=== PATIENT | female | born 2000 | race Caucasian/White ===

== ENCOUNTER 2019-10-05 15:42 | Emergency (ER) | payer OTHER, SELFPAY ==
[2019-10-05 16:15] VITALS: BP 119/58; PULSE 65; RESP 18; TEMP 37.4; O2SAT 100
--- NOTE | 2019-10-05 16:42 | ED.URI ---
HPI - URI/Sore Throat General Chief Complaint: Upper Respiratory Infection Stated Complaint: Sore Throat Time Seen by Provider: 10/05/19 16:32 Source: patient and RN notes reviewed Mode of arrival: ambulatory Limitations: no limitations History of Present Illness HPI Narrative: Patient presents today complaint of a 4-day history of sore throat, fatigue, body aches, chills, runny nose. Today she developed a migraine headache that is similar to previous migraines. She took NyQuil last night, but no other medications for symptoms. She currently rates her pain 5/10. She does not smoke cigarettes or vape. She does smoke marijuana. MD elicited complaint: fever, sore throat, rhinorrhea and nasal congestion Related Data Home Medications Medication Instructions Recorded Confirmed albuterol sulfate 2 puff INHALATION PRN 10/05/19 Allergies Allergy/AdvReac Type Severity Reaction Status Date / Time No Known Allergies Allergy Verified 10/05/19 16:25 Review of Systems Review of Systems: Narrative: CONSTITUTIONAL: Denies body aches, fever, or sweats.+ Fatigue, chills EYES: Denies visual changes, redness, or discharge. ENT: Denies otalgia. + Rhinorrhea, congestion, sore throat CARDIOVASCULAR: Denies chest pain, palpitations, or edema. RESPIRATORY: Denies cough or dyspnea. GASTROINTESTINAL: Denies abdominal pain, nausea, vomiting, or diarrhea. GENITOURINARY: Denies dysuria or hematuria. SKIN: Denies rash, itching, or wounds. MUSCULOSKELETAL: Denies back pain, joint pain, or myalgia. NEUROLOGIC: Denies numbness, tingling, or weakness.+ Migraine PSYCH: Denies depression or anxiety. PMFSH Social History Social History Gender identity (if verbalized by the patient): Female Comments At time of signature, I have reviewed and agree with nursing past medical, surgical, social and family history unless otherwise noted. Please see nursing chart for further information. There is no relevant family history pertinent to the presenting complaint Exam Narrative: Exam Narrative: GENERAL: Well-appearing, well-nourished, and in no acute distress. HEAD: Normocephalic, atraumatic. EYES: EOMI. No redness or drainage. Conjunctivae normal. ENT: Mucous membranes pink and moist. Nares congested. No rhinorrhea. TMs normal bilaterally. Throat mildly erythematous with copious amount of white postnasal drainage. Uvula midline. NECK: Normal AROM. Supple. Left anterior cervical chain lymphadenopathy. CHEST: No respiratory distress. Clear to auscultation. HEART: Regular rate and rhythm. No murmur appreciated. Normal peripheral pulses. EXTREMITIES: Normal range of motion. No edema. SKIN: Warm, dry, no rash. NEURO: No focal deficits. Alert and oriented x3. Gait steady. PSYCH: Normal affect. No signs of depression or anxiety. Course Vital Signs Vital signs: Temp 99.3, pulse 65, RR 18, blood pressure 119/58. Pulse ox 100 on room air. MDM - URI/Sore Throat Differential Diagnosis Differential diagnosis: Likely upper respiratory infection, otitis media, sinusitis, viral infection, bronchitis, pharyngitis and other (Strep throat) Lab Data Attestation: I reviewed the patient's lab results. Labs: Strep Screen Presumptive Negative *(Reference Range: Negative)* Critical Care Time Critical Care Time Critical Care Time: No Discharge Plan Discharge Clinical Impression: Upper respiratory infection Qualifiers: URI type: unspecified URI Qualified Code(s): J06.9 - Acute upper respiratory infection, unspecified Patient Disposition: Home, Self-Care Condition: Stable Instructions: Upper Respiratory Infection (DC) Additional Instructions: Your rapid strep swab was negative today at [facility]. You will be notified in a few days if the culture comes back positive for strep, and appropriate antibiotics will be called in for you at that time. Your symptoms are likely due to a viral illness, which is not treated
== END 2019-10-05 16:59 | disposition home or self-care (01) ==
PROVIDERS: Emergency Provider Nurse Practitioner; PCP Emergency Medicine
DX: J06.9 Acute upper respiratory infection, unspecified (principal); J45.909 Unspecified asthma, uncomplicated
CPT/HCPCS: 87081; 87880; 99213; G0463

== ENCOUNTER 2019-11-13 21:14 | Emergency (ER) | payer OTHER, SELFPAY ==
[2019-11-13 21:33] VITALS: BP 124/84; PULSE 105; RESP 20; TEMP 37.1; O2SAT 100
--- NOTE | 2019-11-13 22:02 | PC.NURSE ---
Patient up to desk stating her only ride is here to get her. Explained to patient that she is always welcome to come back but that if she is having difficulty breathing she would be seen. Patient stated she would stay.
[2019-11-13 22:35] VITALS: BP 121/78; PULSE 97; RESP 18; O2SAT 100
--- NOTE | 2019-11-13 23:29 | ED.SOB ---
HPI - SOB/Dyspnea General Chief Complaint: Shortness of Breath/Dyspnea Stated Complaint: wheezing, asthma Time Seen by Provider: 11/13/19 22:38 Source: patient and RN notes reviewed Mode of arrival: ambulatory Limitations: no limitations History of Present Illness HPI Narrative: Pt is a 19 y/o female presenting to the ED c/o SOB. Pt reports she is intermittently experiencing SOB and chest tightness. Pt states she has a Hx of asthma and notes she ran out of medication in her inhaler. Pt notes she has recently switched PCP's and has been unable to acquire her medication appropriately. Pt denies fever or chills. Pertinent past history: asthma Onset (ago): unknown Timing: intermittent Associated symptoms: chest pain (Tightness) Related Data Home Medications Medication Instructions Recorded Confirmed albuterol sulfate 2 puff INHALATION PRN 10/05/19 Allergies Allergy/AdvReac Type Severity Reaction Status Date / Time No Known Allergies Allergy Verified 10/05/19 16:25 Review of Systems Review of Systems: All systems reviewed & are unremarkable except as noted in HPI and below Constitutional: Constitutional: Denies chills and Denies fever(s) Cardiovascular: Cardiovascular: Reports chest pain (Tightness) Respiratory: Respiratory: Reports dyspnea PMFSH Past Medical History Medical History Anxiety Asthma Depression Foot fracture History of bipolar disorder Surgical History Surgical History No significant past surgical history Social History Social History Substance use type: marijuana Gender identity (if verbalized by the patient): Female Exam Narrative: Exam Narrative: GENERAL: Well-appearing, well-nourished, and in no acute distress. HEAD: Normocephalic, atraumatic. EYES: PERRLA and EOMI. ENT: Nares clear,. Mucous membranes moist. NECK: Supple. CHEST: Clear to auscultation. No respiratory distress. HEART: Regular rate and rhythm. No murmur heard. Normal peripheral pulses.. EXTREMITIES: Normal range of motion. No edema. SKIN: Warm, dry, no rash. NEURO: No focal deficits. Alert and oriented x3. PSYCH: Normal mood and affect. Course Vital Signs Vital signs: Vital Signs Temperature 37.1 C 03/06/20 21:33 Pulse Rate 105 H 11/13/19 21:33 Respiratory Rate 20 11/13/19 21:33 Blood Pressure 124/84 11/13/19 21:33 Pulse Oximetry 100 11/13/19 21:33 Temperature 37.1 C 11/13/19 21:33 Pulse Rate 97 11/13/19 22:35 Respiratory Rate 18 11/13/19 22:35 Blood Pressure 121/78 11/13/19 22:35 Pulse Oximetry 100 11/13/19 22:35 Discharge Plan Discharge Clinical Impression: Asthma with exacerbation Patient Disposition: Home, Self-Care Condition: Stable Instructions: Asthma (ED) Prescriptions: New albuterol sulfate 90 mcg/actuation HFA aerosol inhaler 1 inhalation INHALATION QID PRN (Reason: shortness of breath or wheezing) Qty: 18 RF: 5 No Action albuterol sulfate 90 mcg/actuation HFA aerosol inhaler 2 puff INHALATION PRN (Reason: Shortness Of Breath) RF: 0 Follow-up/Referrals: Yousif Lerner MD [Primary Care Provider] - Time of Disposition: 23:42
[2019-11-13 23:49] VITALS: BP 125/78; PULSE 88; RESP 16; O2SAT 100
== END 2019-11-13 23:50 | disposition home or self-care (01) ==
PROVIDERS: Emergency Provider Family Medicine; PCP Emergency Medicine
DX: J45.901 Unspecified asthma with (acute) exacerbation (principal)
CPT/HCPCS: 99281

== ENCOUNTER 2022-01-01 13:37 | Emergency (ER) | payer OTHER, SELFPAY ==
--- NOTE | ~2022-01-01 | XR_ITS ---
EXAMINATION: XR soft tissue neck DATE: 01/01/2022 14:26 INDICATION: Foreign body in the esophagus. TECHNIQUE: 2 views of the neck soft tissues were obtained. COMPARISON: None. FINDINGS: The adenoids are enlarged. The palatine tonsils, prevertebral soft tissues, epiglottis, and glottis are normal. No radiopaque foreign body. IMPRESSION: 1. No radiopaque foreign body. 2. Enlarged adenoids. Reviewed, dictated and finalized at location A.
[2022-01-01 13:56] VITALS: BP 125/89; PULSE 86; RESP 16; TEMP 36.6; O2SAT 99
[2022-01-01 16:22] VITALS: BP 119/81; PULSE 88; RESP 14
[2022-01-01 16:58] VITALS: BP 129/69; PULSE 93; RESP 20; O2SAT 100
--- NOTE | 2022-01-01 17:18 | ED.GENADULT ---
HPI - General Adult General Chief complaint: Skin/Abscess/Foreign Body Stated complaint: foreign body in throat Time Seen by Provider: 01/01/22 16:21 History of Present Illness HPI narrative: Patient is a 21-year-old female here for evaluation of foreign body sensation in throat. Patient states she took a steroid pill prescribed by urgent care last night for strep throat, and ever since has felt a foreign body sensation in her throat. States she took the pill with her neck in hyperextension, which she believes caused her symptoms. She did not choke afterwards or have any coughing. She has tried to make herself throw up multiple times with the Heimlich maneuver and states she feels the pill in there and can taste it. She has attempted eating applesauce and peanut butter without relief of her sensation. Denies history of difficulty taking pills. She denies choking, cough, shortness of breath, difficulty breathing. Related Data Home Medications Medication Instructions Recorded Confirmed albuterol sulfate 2 puff INHALATION PRN 10/05/19 lamotrigine 01/01/22 Allergies Allergy/AdvReac Type Severity Reaction Status Date / Time No Known Allergies Allergy Verified 01/01/22 16:30 Review of Systems Review of Systems: CONSTITUTIONAL: Denies fever, chills, or sweats. EYES: Denies visual changes, redness, or discharge. ENT: Reports foreign body sensation in throat. Reports sore throat. Denies rhinorrhea, congestion, or otalgia. CARDIOVASCULAR: Denies chest pain, palpitations, or edema. RESPIRATORY: Denies cough or dyspnea. GASTROINTESTINAL: Denies abdominal pain, nausea, vomiting, or diarrhea. GENITOURINARY: Denies dysuria or hematuria. SKIN: Denies rash or itching. MUSCULOSKELETAL: Denies back pain, joint pain, or myalgia. NEUROLOGIC: Denies headache, numbness, or weakness. PSYCHIATRIC: Denies anxiety or depression. All systems reviewed & are unremarkable except as noted in HPI and below PMFSH Past Medical History Medical History (Updated 01/01/22 @ 17:38 by Virginia Reyes PA-C) Anxiety Asthma Depression Foot fracture History of bipolar disorder Surgical History Surgical History No significant past surgical history Social History Social History Substance use type: marijuana Gender identity (if verbalized by the patient): Female Exam Narrative: APPEARANCE: Well appearing, no pain in distress, well-nourished. Head: Normocephalic and atraumatic. EYES: PERRLA/EOMI, conjunctivae clear NOSE: No nasal drainage EARS: External ear normal in appearance THROAT: Tonsils are erythematous bilaterally with exudates throughout. Mucous membranes are moist. NECK: Tender, anterior cervical lymphadenopathy on the right. RESPIRATORY: Airway patent, respirations nonlabored. Clear to auscultation bilaterally, no rales, rhonchi, wheezing. CARDIOVASCULAR: Regular rate and rhythm without murmurs, rubs, or gallops. ABDOMINAL: Normoactive bowel sounds. Soft, nontender, nondistended. No rebound tenderness or guarding. MUSCULOSKELETAL: Extremities are warm and well-perfused. Moves all extremities well. No edema. NEURO: Normal speech. No focal neurologic deficits. SKIN: Skin is warm and dry. No rashes. PSYCHIATRIC: Normal affect/mood. Course Vital Signs Vital signs: Vital Signs Temperature 97.8 F 01/01/22 13:56 Pulse Rate 86 01/01/22 13:56 Respiratory Rate 16 01/01/22 13:56 Blood Pressure 125/89 01/01/22 13:56 Pulse Oximetry 99 01/01/22 13:56 Temperature 97.8 F 01/01/22 13:56 Pulse Rate 93 01/01/22 16:58 Respiratory Rate 20 01/01/22 16:58 Blood Pressure 129/69 01/01/22 16:58 Pulse Oximetry 100 01/01/22 16:58 Medical Decision Making [facility] Narrative Medical decision making narrative: 19-year-old female here for evaluation of foreign body sensation in throat after taking a stero
== END 2022-01-01 17:50 | disposition home or self-care (01) ==
PROVIDERS: Emergency Provider Emergency Medicine; PCP Emergency Medicine
DX: R09.89 Other specified symptoms and signs involving the circulatory and respiratory systems (principal); J02.0 Streptococcal pharyngitis; J45.909 Unspecified asthma, uncomplicated
CPT/HCPCS: 70360; 99283

== ENCOUNTER 2022-08-21 10:00 | Outpatient (RCR) | payer OTHER, SELFPAY ==
--- NOTE | 2022-08-21 12:29 | PCPTNOTE ---
Patient no showed for evaluation
== END 2022-11-05 08:08 | disposition home or self-care (01) ==
LOC: ANHPT 10:00
PROVIDERS: PCP Emergency Medicine; Visit Provider Physician Assistant
DX: M79.10 Myalgia, unspecified site (principal)
CPT/HCPCS: 99199

== ENCOUNTER 2023-08-05 11:35 | Emergency (ER) | payer OTHER, SELFPAY ==
[2023-08-05 11:55] VITALS: BP 121/70; PULSE 93; RESP 16; TEMP 37.3; O2SAT 98
--- NOTE | 2023-08-05 12:08 | ED.URI ---
HPI - URI/Sore Throat General Chief Complaint: Upper Respiratory Infection Stated Complaint: cough,sinus drainage Time Seen by Provider: 08/05/23 12:08 Source: patient Mode of arrival: ambulatory Limitations: no limitations History of Present Illness HPI Narrative: 23 yo F presents with c/o cough, chest congestion, sinus drainage for 1 wk. Pt reports hx of asthma. boyfriend states pt wheezing in her sleep. afebrile. Pt smokes marijuana, no cigarettes. denies CP/SOB. All systems reviewed and negative except as noted above. Related Data Home Medications Medication Instructions Recorded Confirmed albuterol sulfate 90 mcg/actuation 2 puff inhalation PRN Shortness Of 10/05/19 aerosol inhaler Breath lamotrigine 100 mg tablet 100 mg PO DAILY 01/01/22 08/05/23 Allergies Allergy/AdvReac Type Severity Reaction Status Date / Time No Known Allergies Allergy Verified 08/05/23 12:09 Review of Systems Review of Systems: CONSTITUTIONAL: Denies fever, chills, or sweats. EYES: Denies visual changes, redness, or discharge. ENT: reports rhinorrhea, congestion, sinus drainage. Denies sore throat, or otalgia. CARDIOVASCULAR: Denies chest pain, palpitations, or edema. RESPIRATORY: Reports cough. Denies dyspnea. GASTROINTESTINAL: Denies abdominal pain, nausea, vomiting, or diarrhea. GENITOURINARY: Denies dysuria or hematuria. SKIN: Denies rash or itching. MUSCULOSKELETAL: Denies back pain, joint pain, or myalgia. NEUROLOGIC: Denies headache, numbness, or weakness. PSYCHIATRIC: Denies anxiety or depression. All other systems reviewed are negative, except as documented in HPI. [facility] Past Medical History Medical History (Updated 08/05/23 @ 12:25 by Brittni Armijo NP) Anxiety Asthma Depression Foot fracture History of bipolar disorder Surgical History Surgical History No significant past surgical history Social History Social History Substance use type: marijuana Gender identity (if verbalized by the patient): Female Comments At time of signature, agree with nursing past medical, surgical, social and family history. There is no relevant family history pertinent to the presenting complaint. Exam Narrative: GENERAL: This is a well-nourished, well-developed patient, in no apparent distress. HEAD: normocephalic, atraumatic. EYES: PERRL. Sclera clear/white. Vision is grossly intact. EARS: External ears normal, auditory canals clear and without drainage, TMs normal without perforation. Hearing grossly intact. NOSE: External nose normal with no obvious nasal discharge, nares without redness, no rhinorrhea. THROAT: Mucous membranes moist, posterior pharynx clear. NECK: Neck supple, non-tender without lymphadenopathy, masses or thyromegaly. CARDIOVASCULAR: Regular rate and rhythm without murmurs, gallops, or rubs. RESPIRATORY: decreased lung sounds throughout all lung rosado. No respiratory distress. Breath sounds equal bilaterally. No wheezes, rales, or rhonchi. SKIN: warm, Dry, intact with no suspicious lesions or rash, good texture and turgor. NEURO: awake, alert, and oriented to person, place and time. There were no obvious focal neurologic abnormalities. EXTREMITIES: No joint tenderness, effusion, or edema noted. Course Course Level of Care: Express Care Visit Vital Signs Vital signs: Vital Signs Temperature 37.3 C 08/05/23 11:55 Pulse Rate 93 08/05/23 11:55 Respiratory Rate 16 08/05/23 11:55 Blood Pressure 121/70 08/05/23 11:55 Pulse Oximetry 98 08/05/23 11:55 Temperature 37.3 C 08/05/23 11:55 Pulse Rate 93 08/05/23 11:55 Respiratory Rate 16 08/05/23 11:55 Blood Pressure 121/70 08/05/23 11:55 Pulse Oximetry 98 08/05/23 11:55 Reviewed MDM - URI/Sore Throat MDM Narrative Medical decision making narrative: Patient is aware of diagno
== END 2023-08-05 12:45 | disposition home or self-care (01) ==
PROVIDERS: Emergency Provider Nurse Practitioner Family
DX: J06.9 Acute upper respiratory infection, unspecified (principal)
CPT/HCPCS: 99213; G0463

== ENCOUNTER 2023-08-26 14:22 | Emergency (ER) | payer OTHER, SELFPAY ==
[2023-08-26 14:42] VITALS: BP 150/77; PULSE 97; RESP 18; TEMP 36.9; O2SAT 97
--- NOTE | 2023-08-26 15:33 | ED.GENADULT ---
HPI - General Adult General Chief complaint: Recheck/Abnormal Lab/Rx Stated complaint: med refill Time Seen by Provider: 08/26/23 15:12 History of Present Illness HPI narrative: patient is a 23-year-old female who presents ER for medication refill. Her mental health provider in PCP both made to different hospital system and she cannot see her new provider in tele in November. She has been flagged is med refill but is not yet been prescribed. She has been out of her Lamictal for the last 4 days. She is feeling more anxious. She is taking it twice a day for last 3 years. She has no SI or HI. Her only increased stress is lack of medication. Related Data Home Medications Medication Instructions Recorded Confirmed albuterol sulfate 90 mcg/actuation 2 puff inhalation PRN Shortness Of 10/05/19 aerosol inhaler Breath lamotrigine 100 mg tablet 100 mg PO DAILY 01/01/22 08/05/23 Allergies Allergy/AdvReac Type Severity Reaction Status Date / Time No Known Allergies Allergy Verified 08/05/23 12:09 Review of Systems Constitutional: Constitutional: Reports no additional constitutional complaints Psychiatric: Psychiatric: Reports anxiety, Denies depression, Denies homicidal ideation and Denies suicidal ideation [facility] Past Medical History Medical History (Updated 08/26/23 @ 15:35 by Pedro Snow MD) Anxiety Asthma Depression Foot fracture History of bipolar disorder Surgical History Surgical History No significant past surgical history Social History Social History Substance use type: marijuana Gender identity (if verbalized by the patient): Female Exam Narrative: GENERAL: Well-appearing, well-nourished, and in no acute distress. HEAD: Normocephalic, atraumatic. CHEST: Clear to auscultation. No respiratory distress. HEART: Regular rate and rhythm. No murmur heard. Normal peripheral pulses. EXTREMITIES: Normal range of motion. No edema. NEURO: Alert and oriented x3. PSYCH: Normal mood and affect. Course Course Emergency Course: Will provide 1 month refill Lamictal. Patient grateful. Discharge home. Vital Signs Vital signs: Vital Signs Temperature 98.4 F 08/26/23 14:42 Pulse Rate 97 08/26/23 14:42 Respiratory Rate 18 08/26/23 14:42 Blood Pressure 150/77 H 08/26/23 14:42 Pulse Oximetry 97 08/26/23 14:42 Temperature 98.4 F 08/26/23 14:42 Pulse Rate 97 08/26/23 14:42 Respiratory Rate 18 08/26/23 14:42 Blood Pressure 150/77 H 08/26/23 14:42 Pulse Oximetry 97 08/26/23 14:42 Medical Decision Making Vital Signs Vital Signs: Vital Signs Temperature 98.4 F 08/26/23 14:42 Pulse Rate 97 08/26/23 14:42 Respiratory Rate 18 08/26/23 14:42 Blood Pressure 150/77 H 08/26/23 14:42 Pulse Oximetry 97 08/26/23 14:42 Temperature 98.4 F 08/26/23 14:42 Pulse Rate 97 08/26/23 14:42 Respiratory Rate 18 08/26/23 14:42 Blood Pressure 150/77 H 08/26/23 14:42 Pulse Oximetry 97 08/26/23 14:42 Discharge Plan Discharge Clinical Impression: Bipolar disorder Patient Disposition: Home, Self-Care Condition: Stable Instructions: Medicine Refill (ED) Additional Instructions: Return to the ER if you have thoughts of harming herself or others, yet fever over 100.4? F, or you have additional concerns. Prescriptions: New lamotrigine [Lamictal] 100 mg tablet 100 mg PO BID Qty: 60 0RF No Action albuterol sulfate 90 mcg/actuation HFA aerosol inhaler 2 puff INHALATION PRN (Reason: Shortness Of Breath) doxycycline hyclate 100 mg capsule 100 mg PO BID 7 Days Qty: 14 0RF prednisone 20 mg tablet 40 mg PO DAILY 5 Days Qty: 10 0RF albuterol sulfate 90 mcg/actuation HFA aerosol inhaler 2 puff inhalation QID PRN (Reason: shortness of breath or wheezing) Qty: 8.5 0RF albutero
== END 2023-08-26 15:48 | disposition home or self-care (01) ==
LOC: ANHED 15:37
PROVIDERS: Emergency Provider Emergency Medicine
DX: F31.9 Bipolar disorder, unspecified (principal); F41.9 Anxiety disorder, unspecified; J45.909 Unspecified asthma, uncomplicated
CPT/HCPCS: 99283

== ENCOUNTER 2024-02-22 09:56 | Emergency (ER) | payer OTHER, SELFPAY ==
--- NOTE | 2024-02-22 10:08 | ED.EYEPROB ---
HPI - Eye Problem General Chief complaint: Eye Problems Stated complaint: left eye swollen Time Seen by Provider: 02/22/24 10:27 Source: patient and RN notes reviewed Mode of arrival: ambulatory Limitations: no limitations History of Present Illness HPI Narrative: 23-year-old female presents with concern for left eye irritation and eyelid swelling this started yesterday. She denies vision changes, drainage from the eye, pain. MD chief complaint: eye redness Related Data Home Medications Medication Instructions Recorded Confirmed budesonide-formoterol HFA 160 2 puff inhalation BID 02/22/24 02/22/24 mcg-4.5 mcg/actuation aerosol inhaler (Symbicort) cholecalciferol (vitamin D3) 1,250 1 unit PO WEEKLY 02/22/24 02/22/24 mcg (50,000 unit) capsule hydroxychloroquine 200 mg tablet 200 mg PO BID 02/22/24 02/22/24 nifedipine 30 mg tablet,extended 30 mg PO DAILY 02/22/24 02/22/24 release pantoprazole 40 mg tablet,delayed 40 mg PO DAILY 02/22/24 02/22/24 release Allergies Allergy/AdvReac Type Severity Reaction Status Date / Time No Known Allergies Allergy Verified 02/22/24 10:04 Review of Systems Review of Systems: CONSTITUTIONAL: Denies malaise, chills, sweats, or fever. EYES: Denies visual changes. Reports irritation of the left eye with a bump under the upper lid ENT: Denies rhinorrhea, congestion, sinus pain, otalgia or sore throat. SKIN: Denies rash or itching. NEUROLOGIC: Denies numbness, weakness, or headache. PSYCHIATRIC: Denies anxiety or depression. All systems reviewed & are unremarkable except as noted in HPI and below [facility] Past Medical History Medical History (Updated 02/22/24 @ 10:36 by Lennie Espinoza NP) Anxiety Asthma Depression Foot fracture History of bipolar disorder Surgical History Surgical History No significant past surgical history Social History Social History Substance use type: marijuana Gender identity (if verbalized by the patient): Female Comments At time of signature, agree with nursing past medical, surgical, social and family history. There is no relevant family history pertinent to the presenting complaint Exam Narrative: GENERAL: Well-appearing, well-nourished, and in no acute distress. HEAD: Normocephalic, atraumatic. EYES: PERRLA, sclera clear, and EOMI. No nystagmus. Hordeolum internum noted to the left upper lid, with mild lid edema. No periorbital edema noted ENT: Nares clear, turbinates pink, no rhinorrhea or epistaxis. Mucous membranes moist. TM pearly morales with sharp light reflex bilaterally; no tragal tenderness. NECK: Supple. CHEST: No respiratory distress. Speaks in full sentences. HEART: Regular rate and rhythm. SKIN: Warm, dry, no visible rash. NEURO: Alert and oriented x3. PSYCH: Normal mood and affect Course Course Emergency Course: Patient is aware of diagnosis, understands and agrees to treatment plan. Anticipatory guidance given. Patient agrees to follow-up as directed and is aware of reasons to seek care at the emergency department. Portions of this record may have been created with voice recognition software Level of Care: Express Care Visit Vital Signs Vital signs: Reviewed. MDM - Eye Problem MDM Narrative Medical decision making narrative: Consideration of the following conditions may be warranted for the presenting problem, they are not final diagnoses: Bacterial conjunctivitis, allergic conjunctivitis, viral conjunctivitis, foreign body, blepharitis, chalazion, hordeolum, corneal abrasion, preseptal cellulitis, orbital cellulitis. No evidence of proptosis, ophthalmoplegia, vision loss, pain with eye movement. Exam findings show no acute concerns or changes; patient is non-toxic appearing and is in no distress. Patient is appropriate for outpatient treatment and follow-up. Critical Care Time Cri
[2024-02-22 10:18] VITALS: BP 122/77; PULSE 98; RESP 16; TEMP 37.2; O2SAT 100
== END 2024-02-22 10:40 | disposition home or self-care (01) ==
PROVIDERS: Emergency Provider Nurse Practitioner; PCP Emergency Medicine
DX: H00.024 Hordeolum internum left upper eyelid (principal); J45.909 Unspecified asthma, uncomplicated
CPT/HCPCS: 99213; G0463

== ENCOUNTER 2024-12-08 12:05 | Outpatient (CLI) | payer OTHER, SELFPAY ==
--- NOTE | 2024-12-08 | ECG_ITS ---
Test Date: 2024-12-08 12:38:45 Measurements Intervals [place] Rate: 97 P: 75 [place]: 136 QRS: 91 QRSD: 100 T: 19 QT: 370 QTc: 471 Interpretive Statements SINUS RHYTHM RIGHT AXIS DEVIATION MINIMAL Q WAVES- INFERIOR LEADS NONSPECIFIC T-WAVE ABNORMALITY- INFERIOR LEADS BASELINE ARTIFACT- I, III, V1, V4-V5 BORDERLINE ECG No previous ECG available for comparison Electronically Signed On 12-08-2024 12:58:22 CDT by Tin Lima D.O.
[2024-12-08 12:47] LABS: Hematocrit 40.8 % (37.0-47.0); Hemoglobin 13.2 g/dL (12.0-15.0); Mean Corpuscular HGB Conc 32.4 g/dl (32-36); Mean Corpuscular Hemoglobin 29.3 pg (26-34); Mean Corpuscular Volume 90.5 fl (80-100); Mean Platelet Volume 12.3 fl (7.4-10.4); Platelet Count Result 289 k/mm3 (150-375); Red Blood Count 4.51 M/mm3 (4.2-5.4); Red Cell Distribution Width 11.9 % (11.5-14.5)
[2024-12-08 13:03] LABS: Alanine Aminotransferase 19 U/L (6-35); Albumin Level 4.8 g/dL (3.5-5.1); Alkaline Phosphatase 61 U/L (38-126); Anion Gap 12 mmol/L (4-12); Aspartate Amino Transferase 24 U/L (14-36); Bilirubin,Total 0.3 mg/dL (0.2-1.3); Blood Urea Nitrogen 10 mg/dL (7-17); Calcium 9.1 mg/dL (8.4-10.2); Carbon Dioxide 25 mmol/L (22-30); Chloride 104 mmol/L (98-107); Estimated Glomerular Filt Rate > 60; Glucose 101 mg/dL (65-110); Potassium 4.1 mmol/L (3.4-5.0); Sodium 141 mmol/L (137-145)
--- OUTSIDE RECORDS SUMMARY | 2024-12-08 13:12 | XMS_ITS | Clinical Summary ---
Author Organization [facility] Address [facility] [place] [address] Care Team Providers Care Cyberathlete Name Role Phone Olamide Alvarez MD Primary Care Provider [phone] Allergies Active Allergy Reactions Criticality Noted Date Comments Penicillins Itching High 02/26/2023 Medications diclofenac EC (VOLTAREN) 50 MG tablet Take 1 tablet (50 mg total) by mouth 2 (two) times daily. 30 tablet 03/27/2023 Active Social History Tobacco Use Types Packs/Day Years Used Date Smoking Tobacco: Never Smokeless Tobacco: Never Tobacco Cessation:Counseling Given: Not Answered Alcohol Use Standard Drinks/Week Comments Not Currently 0 (1 standard drink = 0.6 oz pur e alcohol) Comments No Sex and Gender Information Value Date Recorded Sex Assigned at Not on file Legal Sex Female 7:22 PM CDT Gender Identity Not on file Sexual Orientation Not on file Last Filed Vital Signs Vital Sign Reading Time Taken Comments Blood Pressure 141/83 07/11/2024 5:41 PM CDT Pulse 98 07/11/2024 5:41 PM CDT Temperature 37 C (98.6 F) 07/11/2024 5:41 PM CDT Respiratory Rate 16 07/11/2024 5:41 PM CDT Oxygen Saturation 95% 07/11/2024 5:41 PM CDT Inhaled Oxygen Concentration - - Weight 49 kg (108 lb) 07/11/2024 5:41 PM CDT Height 157.5 cm (5' 2 ) 07/11/2024 5:41 PM CDT Body Mass Index 19.75 07/11/2024 5:41 PM CDT Plan of Treatment Health Maintenance Due Date Last Done Comments Cervical Cancer Screening Pap Smear (Age 21 to 29) Every 3 Years 1999 Cervical Cancer Screening 1999 Annual Physical 2002 DTaP, Tdap and Td Vaccines (7 - Td or Tdap) 10/20/2021 10/20/2011, 06/07/2003, 10/07/2000, Additional history exists COVID-19 Vaccine ( season) 2024 11/07/2021, 10/16/2021 Influenza Adult (#1) 2024 06/05/2016, 10/20/2011, 10/08/2009 Pneumococcal Vaccine: Pediatrics (0 to 5 Years) and At-Risk Patients (6 to 64 Years) Aged Out 10/07/2000, 06/07/2000 No longer eligibl e based on patient's age to complete this topic Hepatitis B Vaccines Completed 06/07/2003, 01/26/2000, 1999, Additional history exists HPV Vaccines Completed 04/09/2013, 10/10, 02/23/2010 Meningococcal Vaccine Completed 12/02/2015, 012 Hepatitis C Completed 02/26/2023, 02/08, 02/26/2023 Meningococcal B Vaccine Aged Out No l onger eligible based on patient's age to complete this topic RSV Immunizations Under 20 Months Aged Out No longer eligible based on patient's age to complete this topic Insurance [employer] Care Teams Cyberathlete Relationship Specialty Start Date End Date Olamide Alvarez MD [address] [place] [id number] PCP - General EMERGENCY MEDICINE 07/11/24
--- OUTSIDE RECORDS SUMMARY | 2024-12-08 13:12 | XMS_ITS | Clinical Summary ---
Author Organization [facility] [address] [facility] Address [address] [place] [address] Care Team Providers Care Fuel Retrofitting Technician Name Role Phone No, Physician Primary Care Provider [phone] Allergies Active Allergy Reactions Criticality Noted Date Comments Penicillins Itching Low 07/13/2023 Medications lamoTRIgine (LaMICtal) 100 mg tablet Take 1 tablet (100 mg total) by mouth 2 (two) times a day 02/24/2023 Active naproxen (NAPROSYN) 500 mg tablet TAKE 1 TABLET BY MOUTH TWICE DAILY WITH MEALS FOR 21 DAYS 05/24/2023 Active NIFEdipine CC 30 mg 24 hr tablet TAKE 1 TABLET BY MOUTH ONCE DAILY ON AN EMPTY STOMACH 05/21/2023 Active dicyclomine (BENTYL) 20 mg tablet 09/18/2022 Active Active Problems No known active problems Social History Tobacco Use Types Packs/Day Years Used Date Smoking Tobacco: Never Assessed Comments Unknown Sex and Gender Information Value Date Recorded Sex Assigned at Not on file 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 Gender Identity Not on file Sexual Orientation Not on file Obstetrics History Last Filed Vital Signs Vital Sign Reading Time Taken Comments Blood Pressure 118/74 07/13/2023 6:32 PM CDT Pulse 116 07/13/2023 6:32 PM CDT Temperature 37 C (98.6 F) 07/13/2023 6:32 PM CDT Respiratory Rate 16 07/13/2023 6:32 PM CDT Oxygen Saturation 99% 07/13/2023 6:32 PM CDT Inhaled Oxygen Concentration - - Weight 50.8 kg (112 lb) 07/13/2023 6:32 PM CDT Height 154.9 cm (5' 1 ) 03/28/2019 8:22 PM CDT Body Mass Index 21.16 03/28/2019 8:22 PM CDT Plan of Treatment Health Maintenance Due Date Last Done Comments Cervical Cancer Screening 1999 Depression Screening 1999 Hepatitis C Screening 1999 Regular Well Visit/Exam 18-64 2017 Covid-19 Vaccine (3 2023-2 5 season) 2024 11/07/2021, 10/16/2021 Influenza Vaccine (#1) 2024 , 06/05/2016, 10/20/2011, Additional history exists DTaP/Tdap/Td Vaccine (8 - Td or Tdap) 05/30/2033 05/30/2023, 10/20/2011, 06/07/2003, Additional history exists Pneumococcal vaccine <65 Completed 10/07/2000, 05/11 Hepatitis B Screening Completed 06/07/2003 , 01/26/2000, 1999, Additional history exists Varicella Vaccines Completed 05/27/2007, 06/07/2000 HPV Vaccines Completed 04/09/2013, 10/10, 02/23/2010 Insurance [facility] [place] [address] [place] [address] Care Teams Fuel Retrofitting Technician Relationship Specialty Start Date End Date No, Physician PCP - General 07/13/23
--- OUTSIDE RECORDS SUMMARY | 2024-12-08 13:12 | XMS_ITS | Referral Summary ---
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
--- OUTSIDE RECORDS SUMMARY | 2024-12-08 13:12 | XMS_ITS | Clinical Summary ---
Author Organization [facility] [place] Address [address] [place] [address] Care Team Providers Care Container Finishing Inspector Name Role Phone Olamide Alvarez MD Primary Care Provider Source Comments [facility],non-owned Affiliates and Associated Physician Practices is amultiple site organization consisting of ambulatory clinics and hospital sitesin [place], [place], [place] and [place]. This disclosure is being madepursuant to the Care Everywhere program and may not contain all information available regarding this patient. Last updated 18.[facility] [place] Allergies Active Allergy Reactions Criticality Noted Date Comments Penicillins Itching,Unknown High 02/26/2023 Medications * Be aware that medications may not be up to date on this document. Alwaysverify current medications with the patient. Medication Sig Dispensed Refills Start Date End Date Status lamoTRIgine (LaMICtal) 100 MG tablet 02/24/2023 Active albuterol HFA (Proventil; Ventolin; Proair) 108 (90 Base) MCG/ACT inhaler Inhale 2 (two) puffs by mouth every 6 hours Active Symbicort 160-4.5 MCG/ACT inhaler Inhale 2 (two) puffs by mouth 2 times daily 01/20/2024 Active Cholecalciferol (vitamin D3) 1.25 MG (31229 UT) capsule Take 1 (one) capsule by mouth every 7 days 01/07/2024 Active hydroxychloroquine (Plaquenil) 200 MG tabletIndications: Scleroderma (HCC),Shortness of breath Take 1 (one) tablet by mouth once daily 90 tablet 3 04/03/2024 04/03/2025 Active famotidine (Pepcid) 20 MG tablet Take 1 (one) tablet by mouth 2 times daily 180 tablet 3 08/13/2024 Active pantoprazole EC (Protonix) 40 MG tabletIndications: Gastroesophageal reflux disease, unspecified whether esophagitis present Take 1 (one) tablet by mouth once daily Take 30 minutes before breakfast. 90 tablet 2 08/28/2024 Active NIFEdipine CR 24hr (Adalat CC) 30 MG tabletIndications: Raynaud's disease without gangrene,Scleroder ma (HCC) Take 1 (one) tablet by mouth once daily Take on an empty stomach. 90 tablet 12/03/2024 Active NIFEdipine CR 24hr (Adalat CC) 30 MG tabletIndications: Raynaud's disease without gangrene,Scleroder ma (HCC) Take 1 (one) tablet by mouth once daily Take on an empty stomach. 90 tablet 4 05/21/2023 12/03/2024 Discontinued (Reorder) Active Problems Patient Care Coordination No te Formatting of this note migh t be different from the original. PMD now at [facility] [place] Desi Smiley, ROE, CPNP Phone: (KIDS) Fax: After Hours: [phone] Problem Noted Date Diagnosed Date Dysphagia 11/28/2023 Gastroesophageal reflux disease 11/28/2023 Flatus 11/28/2023 Bloating 11/28/2023 Abdominal pain, generalized Resolved Problems Problem Noted Date Diagnosed Date Resolved Date Diarrhea 11/28/2023 12/26/2023 Encounters Date Type Department Care Team Description 12/03/2024 Refill [facility] - Rheumatology [address] [facility], [place] [address] Ysabel Streeter MD MEDICATION REFILL 11/03/2024 2:00 PM CIRCLE CUTTING SAW OPERATOR - 11/03/2024 11:59 PM [facility] Hospital Encounter [facility] PFT [address] [place] [address] Melvina Maza MD Discharge Disposition: Home or Self Care 11/03/2024 1:00 PM CIRCLE CUTTING SAW OPERATOR - 11/03/2024 1:59 PM CIRCLE CUTTING SAW OPERATOR Hospital Encounter [facility] ECHO [address] [place] [address] Melvina Maza MD Discharge Disposition: Home or Self Care 11/03/2024 Travel 09/22/2024 Telephone [facility] Medical [facility] - [address] , [address] [phone] Virginia Lind, METAL [employer]CH PRESS OPERATOR-VACUUM TRUCK DRIVER Medication Management (Denial from insurance) 09/15/2024 11:59 AM CIRCLE CUTTING SAW OPERATOR - 09/15/2024 11:59 PM CIRCLE CUTTING SAW OPERATOR Hospital Encounter [facility] LAB OP DRAW STATION [address] [place] [address] Discharge Disposition: Home or Self Care 09/15/2024 11:00 AM CIRCLE CUTTING SAW OPERATOR Office Visit [facility] - Rheumatology [address] [facility], [place] [address] Ysabel Streeter MD Scleroderma (Primary Dx); Raynaud's disease without gangrene 09/15/2024 Travel from Last 3 Months Social History Tobacco Use Types Packs/Day Years Used Date Smoking Tobacco: Every Day Cigarettes Smokeless Tobacco: Never Tobacco Cessation:Ready to Q uit: Not Asked; Counseling Given: Not Answered Comments:[place] Alcohol Use Standard Drinks/Week Comments Yes 0 (1 standard drink = 0.6 oz pur e alcohol) ocassionlly PHQ-2 Answer Date Recorded Patient Health Questionnaire-2 Score 6 09/15/2024 Sex and Gender Information Value Date Recorded Sex Assigned at Not on file Gender Identity Not on file Sexual Orientation Not on file Last Filed Vital Signs Vital Sign Reading Time Taken Comments Blood Pressure 116/68 11/03/2024 1:21 PM CIRCLE CUTTING SAW OPERATOR Pulse 123 09/15/2024 11:13 AM CIRCLE CUTTING SAW OPERATOR Temperature 36.8 C (98.2 F) 09/15/2024 11:13 AM CIRCLE CUTTING SAW OPERATOR Respiratory Rate 19 02/26/2024 10:3 9 AM CDT Oxygen Saturation 98% 09/15/2024 11: 13 AM CIRCLE CUTTING SAW OPERATOR Inhaled Oxygen Concentration - - Weight 49.4 kg (108 lb 12.8 oz) 025 11:13 AM CIRCLE CUTTING SAW OPERATOR Height 152.4 cm (5') 09/15/2024 11:13 AM CIRCLE CUTTING SAW OPERATOR Body Mass Index 21.25 09/15/2024 11:13 AM CIRCLE CUTTING SAW OPERATOR Plan of Treatment Upcoming Encounters Date Type Department Care Team (Late st Contact Info) Description 02/09/2025 11:00 AM CDT Office Visit [facility] - Rheumatology [address] [place] [address], [place] [phone] Ysabel Streeter MD [address] [place] [address] [place] [phone] 02/23/2025 1:30 PM CDT Office Visit [facility] Health Medical Group - [address], [address] [address] Virginia Lind, METAL P[employer] PRESS OPERATOR-VACUUM TRUCK DRIVER [address] [address] Health Maintenance Due Date Last Done Comments PAP SMEAR 1999 HIV SCREENING 2014 HPV VACCINE (1 - 3-dose series) 2014 CHLAMYDIA/GONORRHEA SCREENING 2015 DTAP/TDAP/TD VACCINES (1 - Tdap) 2018 HEPATITIS B VACCINE (1 of 3 - 19+ 3-dose series) 2018 PNEUMOCOCCAL VACCINE (1 of 2 - PCV) 2018 COVID-19 VACCINE (3 - 2023-2 5 season) 2024 11/07/2021, 10/16/2021 INFLUENZA VACCINE (Season Ended) 2025 06/05/2016, 10/20/2011, 10/08/2009 ZOSTER VACCINE (1 of 2) 2049 HEPATITIS C SCREENING Completed 02/26/2023 DEPRESSION SCREENING Completed 09/15/2024, 02/04/2024 HIB VACCINE Aged Out No longer eligi ble based on patient's age to complete this topic MENINGOCOCCAL (Group B) VACCINE SHARED DECISION-MAKING Aged Out No longer eligible based on patient's age to complete this topic MENINGOCOCCAL GROUPS A/C/Y/W VACCINE Aged Out No longer eligible b ased on patient's age to complete this topic Procedures Procedure Name Priority Date/Time Associated Diagnosis Comments PFT-LAB Routine 11/03/2024 3:47 PM CIRCLE CUTTING SAW OPERATOR Scleroderma ECHO COMPLETE Routine 11/03/2024 2:02 PM CIRCLE CUTTING SAW OPERATOR Scleroderma URINALYSIS W/MICROSCOPIC REFLEX TO CULTURE Routine 09/15/2024 12:45 PM CIRCLE CUTTING SAW OPERATOR Scleroderma Shortness of breath PROTEIN CREATININE RATIO URINE RANDOM PNL Routine 09/15/2024 12:45 PM CIRCLE CUTTING SAW OPERATOR Scleroderma Shortness of breath COMPREHENSIVE METABOLIC PANEL Routine 09/15/2024 12:44 PM CIRCLE CUTTING SAW OPERATOR Scleroderma CBC W AUTO DIFFERENTIAL Routine 09/15/2024 12:44 PM CIRCLE CUTTING SAW OPERATOR Scleroderma CK BLOOD Routine 09/15/2024 12:44 PM CIRCLE CUTTING SAW OPERATOR Scleroderma Shortness of breath ALDOLASE Routine 09/15/2024 12:44 PM CIRCLE CUTTING SAW OPERATOR Scleroderma Shortness of breath C-REACTIVE PROTEIN Routine 09/15/2024 12 :44 PM CIRCLE CUTTING SAW OPERATOR Scleroderma Shortness of breath ERYTHROCYTE SEDIMENTATION RATE Routine 09/15/2024 12:44 PM CIRCLE CUTTING SAW OPERATOR Scleroderma Shortness of breath HEPATITIS C ANTIBODY Routine 02/26/2023 10:50 AM CDT Raynaud's disease without gangrene Polyarthralgia Need for hepatitis C screening test Fatigue, unspecified type from Last 3 Months or Most Recently Relevant to Health Maintenance Results * Complete PFT [facility] PFT Lab (11/03/2024 3:47 PM CIRCLE CUTTING SAW OPERATOR) Preets Hayden Cruz MD - 11/03/2024 3:47 PM CIRCLE CUTTING SAW OPERATOR [facility] DEPARTMENT OF PULMONARY, CRITICAL CARE, AND SLEEP MEDICINE PULMONARY FUNCTION TEST Please see technologist's comments mentioned in the report. INTERPRETATION: SPIROMETRY: FVC: normal. FEV1: normal. FEV1/FVC ratio is normal. BRONCHODILATOR RESPONSE: There is no significant response to bronchodilator therapy, however this does not mean the patient would not benefit from bronchodilator therapy. FLOW-VOLUME LOOPS: Inspection of the flow-volume loops shows normal flow-volume loops. LUNG VOLUMES: Lung volumes by body plethysmography show normal total lung volume and normal residual volume DIFFUSION CAPACITY DLCO: Unadjusted for Hb and COHb is increased. DLCO: Corrected for Hb and COHb is not performed. IMPRESSION: 1. Normal spirometry and lung volumes. 2. Uncorrected DLCO is mildly increased. 3. No significant bronchodilator response, however this does not preclude the use of bronchodilators. 4. Compared with previous study on 06/28/23, there is no significant change in FEV1, FVC, TLC, and DLCO. Karen Charles MD Pulmonary & Critical Care Fellow Division of Pulmonary, Critical Care and Sleep Medicine [facility] I have personally reviewed the test and agreed with the interpretation. Hayden Cruz M.D., [facility], FRCP Narrative Hayden Cruz MD - 11/03/2024 3:47 PM CIRCLE CUTTING SAW OPERATOR Karen Charles MD 11/03/2024 4:25 PM Procedure Note Karen Charles MD - 11/03/2024 3:47 PM CST Images from the original note were not included. Melvina Maza MD RESPIRATORY TH ERAPY ORDERABLES * ECHO COMPLETE (11/03/2024 2:02 PM CIRCLE CUTTING SAW OPERATOR) IVSd 2D 0.648 cm SSM CV FUJ I PACS LVIDd 4.102 cm SSM CV FUJ I PACS LVIDs 2.962 cm SSM CV FUJ I PACS LVOT diam 1.968 cm SSM CV FUJ I PACS LVPWd 0.742 cm SSM CV FUJ I PACS LV biplane EF 62.702 % SSM CV FUJI PACS LV A2C EF 71.388 % SSM CV FUJ I PACS LV A4C EF 56.574 % SSM CV FUJ I PACS LV EDV A2C 107.576 ml SSM CV FU JI PACS LV EDV A4C 80.588 ml SSM CV FU JI PACS LV ESV A2C 30.78 ml SSM CV FU JI PACS LV ESV A4C 34.996 ml SSM CV FU JI PACS LVOT pk grad 3.81 mmHg SSM CV FUJI PACS LVOT pk humza 97.598 cm/s SSM CV F UJI PACS LVOT VTI 17.078 cm SSM CV [facility] I PACS RV-burger basal diam 3.442 cm SSM CV FUJI PACS RVIDd 2.638 cm SSM CV [facility] I PACS RVOT diam Doppler 2.681 cm SS [facility] RVOT pk humza 66.794 cm/s SSM CV F U PACS RVOT VTI 11.512 cm SSM CV [facility] I PACS LA size 2.664 cm SSM CV [facility] I PACS LA vol BP 34.645 ml SSM CV [facility] I PACS RA area 11.137 cm [facility] AV area pk humza 2.22 cm [facility] AV area cont VTI 2.269 cm [facility] AV pk grad 7.163 mmHg SSM CV FU JI PACS AV mn grad 4.166 mmHg SSM CV FU JI PACS AV pk humza 133.817 cm/s SSM CV [facility] I PACS AV VTI 22.909 cm SSM CV [facility] I PACS MV A pk humza 74.87 cm/s SSM CV F U PACS MV E pk humza 118.301 cm/s SSM CV F U PACS MV E' lateral humza 14.284 cm/s SS [facility] PV pk humza 72.077 cm/s SSM CV [facility] I PACS PV VTI 13.779 cm SSM CV [facility] I PACS TAPSE 2.22 cm SSM CV [facility] I PACS TR pk humza 213.425 cm/s SSM CV [facility] I PACS Ascending aorta 2.437 cm [facility] IVC Diam Expiration 1.246 cm [facility] AV area index 1.572 cm /m SSM CV FUJI PACS LA vol index 0.024 l/m [facility] Dimensionless Index 0.745 unitless [facility] Myocardial strain charge 2 unitless SSM CV FUJI PACS Anatomical Region Laterality Modality Ultrasound 11/03/2024 1:35 PM CIRCLE CUTTING SAW OPERATOR Narrative 11/03/2024 2:17 PM CIRCLE CUTTING SAW OPERATOR Summary * The left ventricle is normal in size, with normal systolic function and an estimated ejection fraction of 63 % by biplane method of disks. Left ventricular wall motion is normal. * The left ventricular diastolic function is normal. * Right ventricle is normal in size with normal systolic function. * The pulmonary artery systolic pressure is normal, 26 mmHg. * No hemodynamically significant valve disease. Patient Info Name: Poppy Campbell Age: 24 years : 2000 Gender: Female Ht: 60 in Wt: 108 lb BSA: 1.44 m2 HR: 94 bpm BP: 116 / 68 mmHg Heart Rhythm: Sinus Rhythm Exam Date: 11/03/2024 1:35 PM Patient Status: O/P Study Site: [facility] Primary Location: [facility] Info Technical Quality: Good Exam Type: ECHO COMPLETE Indications M34.9 - Scleroderma (HCC) Procedure(s) * A complete 2D, color Doppler, spectral Doppler, and M-Mode transthoracic echocardiogram was performed. Staff Referring Physician: Melvina Maza Ordering Provider: Melvina Maza Attending Physician: Melvina Maza Continuing Education Dean: Bisi Ceron Left Ventricle The left ventricle is normal in size. Left ventricular systolic function is normal with an estimated ejection fraction of 63 % by biplane method of disks. The left ventricular mass is normal. Left ventricular segmental wall motion is normal. The left ventricular diastolic function is normal. Right Ventricle The right ventricle is normal in size. Right ventricular systolic function is normal. Left Atrium The left atrium is normal in size with a left atrial volume index of 24 ml/m2 by BP MOD. Right Atrium The right atrium is normal in size. Atrial Septum Intact interatrial septum visualized by 2D and color Doppler imaging. Aortic Valve The aortic valve is trileaflet. There is no aortic valve stenosis. There is no aortic valve regurgitation. Pulmonic Valve The pulmonic valve is grossly normal. There is no pulmonic valve stenosis. There is no pulmonic regurgitation. Mitral Valve The mitral valve is grossly normal. There is no mitral valve stenosis. There is no mitral valve regurgitation. Tricuspid Valve The tricuspid valve is grossly normal. There is trace tricuspid valve regurgitation. The pulmonary artery systolic pressure is normal, 26 mmHg. Inferior Vena Cava The inferior vena cava is normal in size (< 2.1 cm). Pericardium/Pleural There is no pericardial effusion. Aorta The aortic root at the sinus of Valsalva is normal in size. The ascending aorta is normal in size. Measurements Left Ventricular Outflow Tract Name Value Normal LVOT 2D LVOT Diameter 2.0 cm LVOT Area 3.0 cm2 LVOT Doppler LVOT Peak Velocity 1.0 m/s LVOT Peak Gradient 4 mmHg LVOT Mean Velocity 59.24 cm/s LVOT Mean Gradient 2 mmHg LVOT VTI 17.1 cm LVOT VTI/AV VTI Ratio 0.7 LVOT Stroke Volume 52 ml LVOT Stroke Volume Index 36 ml/m2 35-58 LVOT CO 4.9 l/min LVOT CI 3.4 l/min/m2 Pulmonic Valve Name Value Normal PV 2D RVOT Diameter (2D) 2.7 cm 1.7-2.7 RVOT Doppler RVOT Peak Velocity 0.7 m/s RVOT Peak Gradient 2 mmHg RVOT Mean Gradient 1 mmHg PV Doppler PV Peak Velocity 0.7 m/s PV Peak Gradient 2 mmHg PV Mean Gradient 1 mmHg PV Area (Cont Eq VTI) 4.72 cm2 PV Area Index (Cont Eq VTI) 3.27 cm2/m2 PV Area (Cont Eq Humza) 5.2 cm2 PV Area Index (Cont Eq Humza) 3.63 cm2/m2 Mitral Valve Name Value Normal MV Diastolic Function MV E Peak Velocity 1.2 m/sec MV A Peak Velocity 0.7 m/sec MV E/A 1.6 MV Decel Time (PW) 140 ms MV A Wave Duration 114 ms MV Annular TDI MV Septal e' Velocity 12 cm/s >=8 MV E/e' (Septal) 10 <=8 MV Lateral e' Velocity 14 cm/s >=10 MV E/e' (Lateral) 8 <=8 MV e' Average 13 cm/s MV E/e' (Average) 9 Tricuspid Valve Name Value Normal TV 2D TV Annulus Diameter (4C) 3.7 cm TV Regurgitation Doppler TR Peak Velocity 2.1 m/s TR Peak Gradient 18 mmHg Estimated PAP/RSVP PA Systolic Pressure 26 mmHg <35 TV Annular TDI TV Lateral Kaleigh s' Velocity 12 cm/s 10-19 Pulmonary Vessels Name Value Normal Pulmonary Veins Pulm Vein Peak Systolic Velocity 49.7 cm/s Aorta Name Value Normal Ascending Aorta Asc Ao Diameter 2.4 cm 1.9-3.5 Asc Ao Diameter Index 1.7 cm/m2 1.0-2.2 Septae/Shunt/Generic Name Value Normal Qp/Qs Qp/Qs 1.3 Venous Name Value Normal IVC/SVC IVC Diameter 1.2 cm <=2.1 Aortic Valve Name Value Normal AV Doppler AV Peak Velocity 1.34 m/s AV Peak Gradient 7 mmHg AV Mean Gradient 4 mmHg AV VTI 23 cm AV Area (Cont Eq VTI) 2.27 cm2 >=2.00 AV Area (Cont Eq Humza) 2.22 cm2 AV DI (VTI) 0.75 AV DI (Humza) 0.73 AV Regurgitation 2D LVOT Area 3.04 cm2 Ventricles Name Value Normal LV Dimensions 2D/MM IVS Diastolic Thickness (2D) 0.6 cm 0.6-0.9 LVID Diastole (2D) 4.1 cm 3.8-5.2 LVPW Diastolic Thickness (2D) 0.7 cm 0.6-0.9 IVS Systolic Thickness (2D) 0.8 cm LVID Systole (2D) 3.0 cm 2.2-3.5 LVPW Systolic Thickness (2D) 0.8 cm LV Mass (2D Cubed) 65 g 67-162 LV Mass Index (2D Cubed) 45 g/m2 43-95 Relative Wall Thickness (2D) 0.36 <=0.42 LV Fractional Shortening/Ejection Fraction 2D/MM LV Fractional Shortening (2D) 28 % 27-45 LV EF (2D Teicholz) 54 % 54-74 LV Diastolic Volume (4C MOD) 81 ml LV EF (4C MOD) 57 % LV Diastolic Volume (2C MOD) 108 ml LV EF (2C MOD) 71 % LV Diastolic Volume (BP MOD) 95 ml 46-106 LV Diastolic Volume Index (BP MOD) 66 ml/m2 29-61 LV Systolic Volume (BP MOD) 35 ml 14-42 LV Systolic Volume Index (BP MOD) 24 ml/m2 8-24 LV EF (BP MOD) 63 % 54-74 LV Diastolic Length (4C) 7.5 cm LV Systolic Length (4C) 6.0 cm LV Stroke Volume (4C MOD) 46 ml RV Dimensions 2D/MM RVID Diastole (2D) 2.6 cm 2.5-3.5 RVID Systole (2D) 2.2 cm RV Basal Diastolic Dimension 3.4 cm 2.5-4.1 RV Diastolic Length (4C) 6.4 cm 5.9-8.3 TAPSE 2.2 cm >=1.7 Atria Name Value Normal LA Dimensions LA Dimension (2D) 2.7 cm 2.7-3.8 LA Dimen Index (2D) 1.8 cm/m2 LA Volume (BP MOD) 35 ml LA Volume Index (BP MOD) 24 ml/m2 16-34 RA Dimensions RA Area (4C) 11 cm2 <=18 RA Area (4C) Index 8 cm2/m2 Report Signatures Finalized by Sohan Jacinto on 11/03/2024 02:17 PM Procedure Note Sohan Jacinto MD - 11/03/2024 Summary * The left ventricle is normal in size, with normal systolic functionand an estimated ejection fraction of 63 % by biplane method of disks. Left ventricular wall motion is normal. * The left ventricular diastolic function is normal. * Right ventricle is normal in size with normal systolic function. * The pulmonary artery systolic pressure is normal, 26 mmHg. * No hemodynamically significant valve disease. Patient Info Name: Poppy Campbell Age: 24 years : 2000 Gender: Female Ht: 60 in Wt: 108 lb BSA: 1.44 m2 HR: 94 bpm BP: 116 / 68 mmHg Heart Rhythm: Sinus Rhythm Exam Date: 11/03/2024 1:35 PM Patient Status: O/P Study Site: [facility] Primary Location: [facility] EStudy Info Technical Quality: Good Exam Type: ECHO COMPLETE Indications M34.9 - Scleroderma (HCC) Procedure(s) * A complete 2D, color Doppler, spectral Doppler, and M-Modetransthoracic echocardiogram was performed. Staff Referring Physician: Melvina Maza Ordering Provider: Melvina Maza Attending Physician: Melvina Maza Continuing Education Dean: Bisi TyronGenie Left Ventricle The left ventricle is normal in size. Left ventricular systolic functionis normal with an estimated ejection fraction of 63 % by biplane method ofdisks. The left ventricular mass is normal. Left ventricular segmental wallmotion is normal. The left ventricular diastolic function is normal. Right Ventricle The right ventricle is normal in size. Right ventricular systolicfunction is normal. Left Atrium The left atrium is normal in size with a left atrial volume index of24 ml/m2 by BP MOD. Right Atrium The right atrium is normal in size. Atrial Septum Intact interatrial septum visualized by 2D and color Doppler imaging. Aortic Valve The aortic valve is trileaflet. There is no aortic valve stenosis. Thereis no aortic valve regurgitation. Pulmonic Valve The pulmonic valve is grossly normal. There is no pulmonic valvestenosis. There is no pulmonic regurgitation. Mitral Valve The mitral valve is grossly normal. There is no mitral valve stenosis.There is no mitral valve regurgitation. Tricuspid Valve The tricuspid valve is grossly normal. There is trace tricuspid valve regurgitation. The pulmonary artery systolic pressure is normal, 26mmHg. Inferior Vena Cava The inferior vena cava is normal in size (< 2.1 cm). Pericardium/Pleural There is no pericardial effusion. Aorta The aortic root at the sinus of Valsalva is normal in size. Theascending aorta is normal in size. Measurements Left Ventricular Outflow Tract Name Value Normal LVOT 2D LVOT Diameter 2.0 cm LVOT Area 3.0 cm2 LVOT Doppler LVOT Peak Velocity 1.0 m/s LVOT Peak Gradient 4 mmHg LVOT Mean Velocity 59.24 cm/s LVOT Mean Gradient 2 mmHg LVOT VTI 17.1 cm LVOT VTI/AV VTI Ratio 0.7 LVOT Stroke Volume 52 ml LVOT Stroke Volume Index 36 ml/m2 35-58 LVOT CO 4.9 l/min LVOT CI 3.4 l/min/m2 Pulmonic Valve Name Value Normal PV 2D RVOT Diameter (2D) 2.7 cm 1.7-2.7 RVOT Doppler RVOT Peak Velocity 0.7 m/s RVOT Peak Gradient 2 mmHg RVOT Mean Gradient 1 mmHg PV Doppler PV Peak Velocity 0.7 m/s PV Peak Gradient 2 mmHg PV Mean Gradient 1 mmHg PV Area (Cont Eq VTI) 4.72 cm2 PV Area Index (Cont Eq VTI) 3.27 cm2/m2 PV Area (Cont Eq Humza) 5.2 cm2 PV Area Index (Cont Eq Humza) 3.63 cm2/m2 Mitral Valve Name Value Normal MV Diastolic Function MV E Peak Velocity 1.2 m/sec MV A Peak Velocity 0.7 m/sec MV E/A 1.6 MV Decel Time (PW) 140 ms MV A Wave Duration 114 ms MV Annular TDI MV Septal e' Velocity 12 cm/s >=8 MV E/e' (Septal) 10 <=8 MV Lateral e' Velocity 14 cm/s >=10 MV E/e' (Lateral) 8 <=8 MV e' Average 13 cm/s MV E/e' (Average) 9 Tricuspid Valve Name Value Normal TV 2D TV Annulus Diameter (4C) 3.7 cm TV Regurgitation Doppler TR Peak Velocity 2.1 m/s TR Peak Gradient 18 mmHg Estimated PAP/RSVP PA Systolic Pressure 26 mmHg <35 TV Annular TDI TV Lateral Kaleigh s' Velocity 12 cm/s 10-19 Pulmonary Vessels Name Value Normal Pulmonary Veins Pulm Vein Peak Systolic Velocity 49.7 cm/s Aorta Name Value Normal Ascending Aorta Asc Ao Diameter 2.4 cm 1.9-3.5 Asc Ao Diameter Index 1.7 cm/m2 1.0-2.2 Septae/Shunt/Generic Name Value Normal Qp/Qs Qp/Qs 1.3 Venous Name Value Normal IVC/SVC IVC Diameter 1.2 cm <=2.1 Aortic Valve Name Value Normal AV Doppler AV Peak Velocity 1.34 m/s AV Peak Gradient 7 mmHg AV Mean Gradient 4 mmHg AV VTI 23 cm AV Area (Cont Eq VTI) 2.27 cm2 >=2.00 AV Area (Cont Eq Humza) 2.22 cm2 AV DI (VTI) 0.75 AV DI (Humza) 0.73 AV Regurgitation 2D LVOT Area 3.04 cm2 Ventricles Name Value Normal LV Dimensions 2D/MM IVS Diastolic Thickness (2D) 0.6 cm 0.6-0.9 LVID Diastole (2D) 4.1 cm 3.8-5.2 LVPW Diastolic Thickness (2D) 0.7 cm 0.6-0.9 IVS Systolic Thickness (2D) 0.8 cm LVID Systole (2D) 3.0 cm 2.2-3.5 LVPW Systolic Thickness (2D) 0.8 cm LV Mass (2D Cubed) 65 g 67-162 LV Mass Index (2D Cubed) 45 g/m2 43-95 Relative Wall Thickness (2D) 0.36 <=0.42 LV Fractional Shortening/Ejection Fraction 2D/MM LV Fractional Shortening (2D) 28 % 27-45 LV EF (2D Teicholz) 54 % 54-74 LV Diastolic Volume (4C MOD) 81 ml LV EF (4C MOD) 57 % LV Diastolic Volume (2C MOD) 108 ml LV EF (2C MOD) 71 % LV Diastolic Volume (BP MOD) 95 ml 46-106 LV Diastolic Volume Index (BP MOD) 66 ml/m2 29-61 LV Systolic Volume (BP MOD) 35 ml 14-42 LV Systolic Volume Index (BP MOD) 24 ml/m2 8-24 LV EF (BP MOD) 63 % 54-74 LV Diastolic Length (4C) 7.5 cm LV Systolic Length (4C) 6.0 cm LV Stroke Volume (4C MOD) 46 ml RV Dimensions 2D/MM RVID Diastole (2D) 2.6 cm 2.5-3.5 RVID Systole (2D) 2.2 cm RV Basal Diastolic Dimension 3.4 cm 2.5-4.1 RV Diastolic Length (4C) 6.4 cm 5.9-8.3 TAPSE 2.2 cm >=1.7 Atria Name Value Normal LA Dimensions LA Dimension (2D) 2.7 cm 2.7-3.8 LA Dimen Index (2D) 1.8 cm/m2 LA Volume (BP MOD) 35 ml LA Volume Index (BP MOD) 24 ml/m2 16-34 RA Dimensions RA Area (4C) 11 cm2 <=18 RA Area (4C) Index 8 cm2/m2 Report Signatures Finalized by Sohan Jacinto on 11/03/2024 02:17 PM Melvina Maza MD E[facility] * URINALYSIS W/MICROSCOPIC REFLEX TO CULTURE (09/15/2024 12:45 PM CIRCLE CUTTING SAW OPERATOR) Color UA Yellow Straw, Yellow 09/15/2024 1:29 PM [facility] Clarity UA Clear Clear 09/15/2024 1:29 PM [facility] Specific Gravel Switch UA 1.019 1.005 - 1.030 09/15/2024 1:29 PM [facility] pH UA 5.0 5.0 - 8.0 pH 09/15/2024 1:29 PM [facility] Protein UA Negative Negative 09/15/2024 1:29 PM [facility] Glucose UA Negative Negative 09/15/2024 1:29 PM [facility] Ketone UA Negative Negative 09/15/2024 1:29 PM [facility] Bilirubin UA Negative Negative 09/15/2024 1:29 PM [facility] Blood UA Negative Negative 09/15/2024 1:29 PM [facility] Nitrite UA Negative Negative 09/15/2024 1:29 PM [facility] Leukocyte Esterase Negative Negative 09/15/2024 1:29 PM [facility] Urobilinogen UA Negative Negative mg/dL 09/15/2024 1:29 PM [facility] RBC UA 0-2 None Seen, 0-2, 3-5 /HPF 09/15/2024 1:29 PM [facility] WBC UA 0-5 None Seen, 0-5 /HPF 09/15/2024 1:29 PM [facility] Squamous Epithelial Cells UA 0-2 None Seen, 0-2, 3-5 /HPF 09/15/2024 1:29 PM [facility] Mucus UA 1+ /LPF 09/15/2024 1:29 PM [facility] Urine MID-STREAM URINE SPECIMEN / Unknown Collection / Unknown 09/15/2024 12:45 PM CIRCLE CUTTING SAW OPERATOR 09/15/2024 1:05 PM CIRCLE CUTTING SAW OPERATOR Narrative [facility] - 09/15/2024 1:29 PM CIRCLE CUTTING SAW OPERATOR Culture Not Indicated Melvina Maza MD LAB - URINALYS IS ORDERABLES [facility] [address] [place] [address], [place] [phone] * PROTEIN CREATININE RATIO URINE RANDOM PNL (09/15/2024 12:45 PM CIRCLE CUTTING SAW OPERATOR) Protein Urine <7 Not Established mg/dL 09/15/2024 1:44 PM CIRCLE CUTTING SAW OPERATOR [facility] Creatinine Urine 131.33 Not Established mg/dL 09/15/2024 1:44 PM CIRCLE CUTTING SAW OPERATOR [facility] Protein/Creatinin e Ratio Urine 09/15/2024 1:44 PM CIRCLE CUTTING SAW OPERATOR [facility] Comment:Unable to calculate ratio because the analyte concentration is outside the instrument measuring range. Urine URINE SPECIMEN OBTAINED BY CLEAN CATCH PROCEDURE / Unknown Collection / Unknown 09/15/2024 12:45 PM CIRCLE CUTTING SAW OPERATOR 09/15/2024 1:05 PM CIRCLE CUTTING SAW OPERATOR Melvina Maza MD LAB - URINE CH EMISTRY ORDERABLES Performing Organization Address [facility]/ZIP Co de Phone Number [facility] [address] [place] [id number], [place] [phone] * C-REACTIVE PROTEIN (09/15/2024 12:44 PM CIRCLE CUTTING SAW OPERATOR) C-Reactive Protein <0.5 <=0.5 mg/dL 09/15/2024 1:44 PM CIRCLE CUTTING SAW OPERATOR [facility] Blood BLOOD SPECIMEN / Unknown Lab Venipuncture / Unknown 09/15/2024 12:44 PM CIRCLE CUTTING SAW OPERATOR 09/15/2024 1:10 PM CIRCLE CUTTING SAW OPERATOR Melvina Maza MD LAB - CHEMISTR Y ORDERABLES [facility] [address] [place] [phone], [place] [phone] * ALDOLASE (09/15/2024 12:44 PM CIRCLE CUTTING SAW OPERATOR) Aldolase 3.3 1.2 - 7.6 U/L 09/17/2024 1:45 PM CIRCLE CUTTING SAW OPERATOR [facility]) Comment: REFERENCE INTERVAL: Aldolase Access complete set of age- and/or gender-specific reference intervals for this test in the [facility] Laboratory Test Directory ([employer]). Performed By: [place] [address] Agricultural Sales Representative: Héctor Pierre MD, PhD CLIA Number: [id number] Blood BLOOD SPECIMEN / Unknown Lab Venipuncture / Unknown 09/15/2024 12:44 PM CIRCLE CUTTING SAW OPERATOR 09/15/2024 1:06 PM CIRCLE CUTTING SAW OPERATOR Melvina Maza MD LAB - CHEMISTR Y ORDERABLES Performing Organization Address [facility]/ZIP Co de Phone Number [facility]) [address] [place] [address] * ERYTHROCYTE SEDIMENTATION RATE (09/15/2024 12:44 PM CIRCLE CUTTING SAW OPERATOR) Pathologist [facility] Erythrocyte Sedimentation Rate Westergren 15 0 - 20 MM/HR 09/15/2024 1:41 PM CIRCLE CUTTING SAW OPERATOR [facility] Blood BLOOD SPECIMEN / Unknown Lab Venipuncture / Unknown 09/15/2024 12:44 PM CIRCLE CUTTING SAW OPERATOR 09/15/2024 1:06 PM CIRCLE CUTTING SAW OPERATOR Melvina Maza MD LAB - HEMATOLO GY ORDERABLES [address] [address], [facility] [phone] * (ABNORMAL) CBC WITH DIFFERENTIAL (09/15/2024 12:44 PM CIRCLE CUTTING SAW OPERATOR) Pathologist [facility] WBC 8.4 4.0 - 10.7 x10E9/L 09/15/2024 1:26 PM CIRCLE CUTTING SAW OPERATOR [facility] RBC Count 4.60 3.90 - 5.20 x10E12/L 09/15/2024 1:26 PM CIRCLE CUTTING SAW OPERATOR [facility] Hemoglobin 13.8 11.9 - 15.8 g/dL 09/15/2024 1:26 PM [facility] Hematocrit 40.7 34.8 - 46.1 % 09/15/2024 1:26 PM [facility] MCV 88.5 80.0 - 98.0 fL 09/15/2024 1:26 PM [facility] MCH 30.0 26.7 - 33.6 pg 09/15/2024 1:26 PM [facility] MCHC 33.9 31.7 - 36.3 g/dL 09/15/2024 1:26 PM [facility] RDW-CV 11.9 11.3 - 14.8 % 09/15/2024 1:26 PM [facility] Platelet Count 234 150 - 420 x10E9/L 09/15/2024 1:26 PM [facility] MPV 12.2(H) 7.8 - 11.4 fL 09/15/2024 1:26 PM [facility] Neutrophil % 58.8 41.0 - 74.0 % 09/15/2024 1:26 PM [facility] Lymphocyte % 23.6 17.0 - 47.0 % 09/15/2024 1:26 PM [facility] Monocyte % 6.1 3.0 - 11.0 % 09/15/2024 1:26 PM [facility] Eosinophil % 9.9(H) 0.0 - 7.0 % 09/15/2024 1:26 PM [facility] Basophil % 1.2 0.0 - 1.6 % 09/15/2024 1:26 PM [facility] Immature Granulocytes % 0.4 0.0 - 1.0 % 09/15/2024 1:26 PM [facility] Neutrophil Absolute 4.95 1.60 - 7.50 x10E9/L 09/15/2024 1:26 PM [facility] Lymphocyte Absolute 1.98 1.00 - 4.40 x10E9/L 09/15/2024 1:26 PM [facility] Monocyte Absolute 0.51 0.15 - 1.00 x10E9/L 09/15/2024 1:26 PM [facility] Eosinophil Absolute 0.83(H) 0.00 - 0.60 x10E9/L 09/15/2024 1:26 PM [facility] Basophil Absolute 0.10 0.00 - 0.13 x10E9/L 09/15/2024 1:26 PM [facility] Blood BLOOD SPECIMEN / Unknown Lab Venipuncture / Unknown 09/15/2024 12:44 PM CIRCLE CUTTING SAW OPERATOR 09/15/2024 1:06 PM CIRCLE CUTTING SAW OPERATOR Melvina Maza MD LAB - HEMATOLO GY ORDERABLES [facility] [address] [place] [address], [facility] [phone] * COMPREHENSIVE METABOLIC PANEL (09/15/2024 12:44 PM CIRCLE CUTTING SAW OPERATOR) BUN 11 7 - 26 mg/dL 09/15/2024 1:40 PM [facility] Creatinine 0.86 0.56 - 0.96 mg/dL 09/15/2024 1:40 PM [facility] Sodium 139 136 - 145 mmol/L 09/15/2024 1:40 PM [facility] Potassium 4.0 3.5 - 4.5 mmol/L 09/15/2024 1:40 PM [facility] Chloride 107 98 - 107 mmol/L 09/15/2024 1:40 PM [facility] CO2 25 22 - 29 mmol/L 09/15/2024 1:40 PM [facility] Glucose 93 70 - 99 mg/dL 09/15/2024 1:40 PM [facility] Calcium 9.8 8.4 - 10.2 mg/dL 09/15/2024 1:40 PM [facility] Protein Total 7.9 6.0 - 8.3 g/dL 09/15/2024 1:40 PM [facility] Albumin 4.9 3.4 - 5.0 g/dL 09/15/2024 1:40 PM [facility] Bilirubin Total 0.3 0.2 - 1.2 mg/dL 09/15/2024 1:40 PM [facility] Alkaline Phosphatase 60 40 - 150 U/L 09/15/2024 1:40 PM [facility] ALT 14 5 - 55 U/L 09/15/2024 1:40 PM [facility] AST 21 5 - 34 U/L 09/15/2024 1:40 PM [facility] Anion Gap 7 6 - 16 09/15/2024 1:40 PM [facility] BUN/Creatinine Ratio 13 7 - 23 09/15/2024 1:40 PM [facility] Osmolality Calculated 287 275 - 295 mOsm/kg 09/15/2024 1:40 PM [facility] Albumin/Globulin Ratio 1.6 1.1 - 2.3 09/15/2024 1:40 PM [facility] eGFR by CKD-EPI >90 >=90 mL/min/1.7 3 m2 09/15/2024 1:40 PM [facility] Blood BLOOD SPECIMEN / Unknown Lab Venipuncture / Unknown 09/15/2024 12:44 PM CIRCLE CUTTING SAW OPERATOR 09/15/2024 1:10 PM CIRCLE CUTTING SAW OPERATOR Melvina Maza MD LAB - CHEMISTR Y ORDERABLES [address] [address], [facility] [phone] * CK BLOOD (09/15/2024 12:44 PM CIRCLE CUTTING SAW OPERATOR) Pathologist [facility] CK Total 166 30 - 200 U/L 09/15/2024 1:40 PM [facility] Blood BLOOD SPECIMEN / Unknown Lab Venipuncture / Unknown 09/15/2024 12:44 PM CIRCLE CUTTING SAW OPERATOR 09/15/2024 1:10 PM CIRCLE CUTTING SAW OPERATOR Melvina Mzaa MD LAB - CHEMISTR Y ORDERABLES [address] [address], [facility] [phone] * HEPATITIS C ANTIBODY (02/26/2023 10:50 AM CDT) Hepatitis C Antibody Non-react donnell Non-reac tive 02/26/2023 12:48 PM CDT [facility] Comment:Hepatitis C Antibody screen indicates no serologic evidence of past or current infection with Hepatitis C Virus. Patients with unexplained liver disease who are immunocompromised or suspected of having acute Hepatitis C infection may benefit from Nucleic Acid Test (RANJIT) for Hepatitis C Viral RNA to confirm Hepatitis C status. Blood BLOOD SPECIMEN / Unknown Lab Venipuncture / Unknown 02/26/2023 10:50 AM CDT 02/26/2023 11:21 AM CDT Melvina Maza MD LAB - CHEMISTR Y ORDERABLES [facility] [address] [place] [address], [facility] [phone] from Last 3 Months or Most Recently Relevant to Health Maintenance Care Teams Container Finishing Inspector Relationship Specialty [place] [address] [place] [phone] PCP - General Emergency Medicine 02/04/24
--- OUTSIDE RECORDS SUMMARY | 2024-12-08 13:12 | XMS_ITS | Clinical Summary ---
Author Organization [facility] Care Team Providers Care Sales Service Representative Name Role Phone Unavailable Primary Care Provider Unavailabl e Social History Tobacco Use Types Packs/Day Years Used Date Smoking Tobacco: Never Assessed Comments Unknown Sex and Gender Information Value Date Recorded Sex Assigned at Not on file Legal Sex Female 3:27 PM CDT Gender Identity Not on file Sexual Orientation Not on file Plan of Treatment Health Maintenance Due Date Last Done Comments Hepatitis C Virus (HCV) Screening 1999 Pap Smear 02/28/2020 Influenza Immunization (#1) 2024 06/05/2016, 0 10/20/2011 SARS-COV-2 Immunization ( season) 2024 Respiratory Syncytial Virus (RSV) Immunization (Adult) (1 - 1-dose 75+ series) 2074 Hepatitis B Immunization Completed 000, 1999, 1999 Pneumococcal Immunization Combined Aged Out 10/07/2000, 06/07/2000 No longer eligibl e based on patient's age to complete this topic DTaP/Tdap/Td Immunization Discontinued 2011, 06/07/2003, 10/07/2000, Additional history exists TdaP Immunization Completed 10/20/2011 Human Papillomavirus (HPV) Immunization Completed 04/09/2013, 10/20/2011, 02/23/2010 Meningococcal Immunization (ACWY) Completed 12/02/2015, 10/20/2011 Rotavirus Immunization Aged Out No lo nger eligible based on patient's age to complete this topic
--- OUTSIDE RECORDS SUMMARY | 2024-12-08 13:12 | XMS_ITS | Data Portability ---
Author Organization [place] - S [employer] [facility], Main Office Address [address] [place] [address] Care Team Providers Care Grant Writer Name Role Phone AVINASH FUENTES Primary Care Provider [phone] AVINASH FUENTES Referring Provider SADIA TAN Alterations Supervisor [phone] Assessment Encounter Date Assessment Date Assessment LastModified by Organization Details LastModified Time 06/19/2023 06/19/2023 23-year-old female returns to clinic concerning a right foot 5th metatarsal base avulsion fracture that occurred approximately 5 weeks ago. She has been wearing her lace-up ankle brace since her last visit. x-rays today revealed good interval healing of the 5th metatarsal base avulsion fracture. She will continue wearing her brace when walking around. will refer her to physical therapy for range of motion ankle exercises, she may continue with her home exercise program. She may continue taking oral and topical anti-inflammator ies as tolerated. She will follow up in 2-3 weeks for re-evaluation. [email or web address] Not available 06/19/2023 17:05:15 07/10/2023 07/10/2023 23-year-old female presents for follow-up of her right foot. She has a avulsion fracture of the base of the 5th metatarsal that we are treating conservatively. She has had some improvement, but still has pain. She currently rates her pain as 5/10. She has been wearing the lace-up ankle brace in a regular shoe. She has been doing some physical therapy which she reports is helping. Her PT course goes until the end of the month. She still has soreness over the base of 5th metatarsal. No tenderness elsewhere in the foot. She has good ankle range of motion. Pain with resisted eversion. 2+ DP pulse, sensation intact to light touch throughout. X-rays of the foot were reviewed, demonstrating no further displacement and bony healing. Will have her finish up her course of PT, which goes until the end the month, and then have her follow-up after then. We anticipate that she will be much better at that point, and we will see if she is able to be cleared. Not available 07/10/2023 22:55:46 08/07/2023 08/07/2023 23-year-old female presents for follow-up of her right base of 5th metatarsal avulsion fracture being treated non operatively. She has been in a lace-up ankle brace, wearing a regular shoe. She has been doing physical therapy and they have been doing 10s which she feels like has significantly helped. She still has some soreness over the foot and especially with prolonged standing or walking. Overall she is making improvements. She reports that her company is shutting down August 09 so she does not have a job to return to at this point. She still has some soreness to palpation at the base of 5th metatarsal. She has good ankle range of motion, sensation intact light touch, 2+ DP pulse. At this point she is making improvement we will have her continue physical therapy. We gave her a renewal. We will follow up with her in about 6 weeks, after the holidays. She is in agreement with plan. Not available 08/07/2023 15:28:49 09/18/2023 09/18/2023 23-year-old female presents for follow-up for right base of 5th metatarsal avulsion. She reports it is feeling better. She has finished with a course of physical therapy and began using a 10s unit. She is off medications. She currently rates her pain as 4/10. She still has some soreness over the base of 5th metatarsal. Good ankle and foot range of motion. Nonantalgic gait. Neurovascular intact. She has continued to improve and we will have her continue her home exercise program. She can start using her 10s unit. We will keep her on the same work restrictions. Follow up in 6 weeks for recheck. She is in agreement with the plan. Addendum 10/01/23: Received letter stating that she needs documented medical necessity for her Tens unit. Her original injury was in March so she is over 6 months out from her original fracture. Although she has had some improvement with treatment so far, she continues to have some pain at the base of the 5th metatarsal and visible area of healing from the fracture on x-ray. As such, I believe she will have more improvement with this additional modality, to get her over the hump and return to full function. Not available 10/01/2023 23:43:06 10/30/2023 10/30/2023 23-year-old female presents for follow-up of her right foot, base of the 5th metatarsal fracture treated conservatively. She reports feeling better. Since last time, she did get the stim machine. She is finished with therapy. She currently rates her pain as 1/10. She is walking without any difficulty or pain. no tenderness to palpation around the base of 5th metatarsal or rest of the foot or ankle. She is good ankle range of motion, sensation intact to light touch throughout, 2+ DP pulse. At this point she is at [facility]. She is cleared for full duty. She may follow up as needed. She is in agreement with the plan. Not available 11/04/2023 00:41:08 Plan of Treatment Reminders Order Date Submit Date Provider Last Modified By Organization Details Last Modified Time Details Appointments None recorded. Lab None recorded. Referral physical therapist referral - continuati on of therapy for R foot 2022 023 [facility], [address] [facility], [place], [address], 14:50:31 physical therapist referral - EVAL AND TREATWORK COMP:CBCSI njury Date 05/11/2023 Injured Body Part R FOOTWorker 's Comp 0Adjvernell Aguiar sandor Ad sandor 2022 023 [facility], [address] [facility], [place], [address], 19:56:18 Procedures None recorded. Surgeries None recorded. Imaging XR, foot, 3 or more view 2022 023 [facility] [place], [address], [place], [address], 3 23:47:09 XR, foot, 3 or more view 2022 023 [email or web address] [place], [address], [place], [address], 09:19:47 Medication Orders None recorded. Patient TargetsNo targets recorded. Patient InstructionsNo instructions recorded. Reason for Referral Physical Therapist Referral for Pain in right foot EVAL AND TREATWORK COMP:CBCSInjury Date 05/11/2023Injured Body Part R FOOTWorker's Comp [facility] Referring Physician: Jim Keyes, Orthopedics, Encounter Date: 06/19/2023 Physical Therapist Referral for Pain in right foot R foot continuation of therapy for R foot Referring Physician: Thierry Gipson, Orthopedic Surgery, Encounter Date: 08/07/2023 Results Created Date Observation Date Name Description Value Unit Range Abnormal Flag Note LastModifiedBy Organization Detail LastModifiedTime 05/30/2005/24/2023 XR, foot, 3 or more view No observ ation record ed. [email or web address] Not Available 05/11 16:16:10 05/30/20 23 05/24/2023 XR, ankle , 3 or more view No observ ation record ed. [email or web address] Not Available 05/11 16:16:10 06/05/20 23 XR, foot, 3 or more view No observ ation record ed. [email or web address] [facility] [place] [address], [place], [address], 06/05/2023 14:44:46 06/19/20 23 XR, foot, 3 or more view No observ ation record ed. [email or web address] [facility] [place] [address] [address], [address], 06/19/2023 17:06:33 07/10/20 23 XR, foot, 3 or more view No observ ation record ed. [email or web address] [facility] [place] [address] [facility] [address], [address], 07/10/2023 14:46:57 Result Notes None recorded. Problems Name Problem SNOMED Code Status Onset Date Resolution Date Notes Provider Name and Address Organization Details Recorded Time Pain in right foot 241913562419874 Active 2022 JAZMIN Romo, [place] - [facility] 14:39:03 Problem Notes None recorded. Procedures Surgical History None recorded. Imaging Results Imaging Date Name Status LastModified by Organiz atformerly [facility] Details LastModified Time 05/24/2023 XR, foot, 3 or more view completed Information not available 05/30/2023 16:16:10 05/24/2023 XR, ankle, 3 or more view completed Information not available 05/30/2023 16:16:10 06/05/2023 XR, foot, 3 or more view completed [email or web address] [facility] [place] [address] [facility] [address], [place], [address], 06/05/2023 14:44:46 06/19/2023 XR, foot, 3 or more view completed [email or web address] [facility] [place] [address] [facility] [address], [address], 06/19/2023 17:06:33 07/10/2023 XR, foot, 3 or more view completed [email or web address] [facility] [place] [address] [facility] [address], [address], 07/10/2023 14:46:57 Procedure Notes None recorded. Medical Equipment None Reported. Allergies Allergen ID Allergen Name Allergen Category Reaction Reaction Severity Criticality Documentation Date Start Date Code Code System Note Provider Name and Address Organization Details Recorded Time 02723 Product containin g penicilli n (product) medicatio n Not available Not available Not available 06/05/2023 07114 8001 SNOMED JAZMIN Romo [facility] [employer] [facility] 14:37:47 Medications Name Sig Start Date Stop Date Status Note LastModified by Organization Details LastModified Time doxycycline hyclate 100 mg capsule TAKE 1 CAPSULE BY MOUTH TWICE DAILY FOR 7 DAYS active Not Available Not Available No t Available prednisone 20 mg tablet TAKE 2 TABLETS BY MOUTH ONCE DAILY FOR 5 DAYS active Not Available Not Available No t Available nifedipine ER 30 mg tablet,exte nded release TAKE 1 TABLET BY MOUTH ONCE DAILY ON AN EMPTY STOMACH active Not Available Not Available No t Available lamotrigine 25 mg tablet TAKE 1 TABLET BY MOUTH ONCE DAILY active Not Available Not Available No t Available dicyclomine 20 mg tablet active Not Available Not Available Not Available diclofenac sodium 50 mg tablet,maricel yed release TAKE 1 TABLET BY MOUTH TWICE DAILY active Not Available Not Available No t Available albuterol sulfate HFA 90 mcg/actuati on aerosol inhaler INHALE 2 PUFFS BY MOUTH 4 TIMES DAILY NEEDED FOR SHORTNESS OF BREATH OR WHEEZING active Not Available Not Available No t Available ketoconazol e 2 % topical cream 08/06 completed Not Available Not Available Not Available lamotrigine 100 mg tablet TAKE 1 TABLET BY MOUTH TWICE DAILY active Not Available Not Available No t Available naproxen 500 mg tablet TAKE 1 TABLET BY MOUTH TWICE DAILY WITH MEALS FOR 21 DAYS active Not Available Not Available No t Available Vitals Date Recorded Body height Body mass index (BMI) Body weight Pain severity - 0-10 verbal numeric rating [Score] - Reported Provider Name and Address Organization Details Last Updated DateTime 06/19/2023 154.94 cm 20.4 kg/m2 13046.98 g 4 JAZMIN Romo [facility] [employer] [facility] 06/19/2023 14:50:05 Date Recorded Body height Body mass index (BMI) Body weight Pain severity - 0-10 verbal numeric rating [Score] - Reported Provider Name and Address Organization Details Last Updated DateTime 07/10/2023 154.94 cm 20.4 kg/m2 56342.98 g 5 JAZMIN Romo [facility] [employer] 07/10/2023 14:46:27 Date Recorded Body height Body mass index (BMI) Body weight Provider Name and Address Organization Details Last Updated DateTime 08/07/2023 154.94 cm 20.4 kg/m2 51067.98 g Tess Uribe CNA [facility] [employer] [facility] 08/07/2023 15:07:16 Date Recorded Body height Body mass index (BMI) Body weight Provider Name and Address Organization Details Last Updated DateTime 09/18/2023 154.94 cm 20.4 kg/m2 51899.98 g Tess Uribe CNA [facility] [employer] 09/18/2023 15:44:01 Date Recorded Body height Body mass index (BMI) Body weight Provider Name and Address Organization Details Last Updated DateTime 10/30/2023 154.94 cm 20.4 kg/m2 73262.98 g JAZMIN Romo [facility] [employer] 10/30/2023 15:00:53 Social History Question Answer Notes LastModified by Organizat ion Details LastModified Time Tobacco Smoking Status Unknown If Ever Smoked JAZMIN Romo [facility] [employer] 06/05/2023 14:38:27 What Is Your Level Of Alcohol Consumption? Occasional [email or web address] Information not available 06/05/2023 What Was The Date Of Your Most Recent Tobacco Screening? 06/05/2023 [email or web address] Information not available 06/05/2023 Sex: Unknown Functional Status None recorded. Mental Status None recorded. Family History Relationship Description Onset Age of this Age Resolved Age Notes LastModified by Organization Details LastModified Time Unspecified Relation Family history of malignant neoplasm [email or web address] Not available 2022 14:38:07 Medical History No medical history recorded. Gynecological HistoryNo gynecological history recorded. Obstetrics History GPAL:G 0 P 0 0 0 0 Past Encounters Encounter ID Performer Location Encounter Start Date Encounter Closed Date Diagnosis/Indication Diagnosis SNOMED-CT Code Diagnosis ICD10 Code Diagnosis Note [id number] Thierry Gipson MD [facility] [place] [address] [place] [address] 06/05/2023 14:12:00 06/05/2023 15:07:49 Pain in right foot [id number] 03155 M79.130 [id number] MUNIR Gar [facility] [place] [address] [place] [address] 06/19/2023 14:48:26 06/19/2023 15:35:24 Pain in right foot [id number] 32174 M79.083 [id number] Thierry Gipson MD [facility] [place] [address] [place] [address] 07/10/2023 14:38:52 07/10/2023 15:04:30 Pain in right foot [id number] 68378 M79.571 [id number] Thierry Gipson MD [facility] [place] [address] [place] [address] 08/07/2023 14:57:26 08/07/2023 15:27:50 Pain in right foot [id number] 10946 M79.515 [id number] Thierry Gipson MD [facility] [place] [address] [place] [address] 09/18/2023 15:34:25 09/18/2023 16:34:37 Pain in right foot 1884724313 91540 M79.866 [id number] Thierry Gipson MD [facility] [place] [address] [place] [address] 10/30/2023 14:59:13 10/30/2023 16:08:41 Pain in right foot 0121668134 78643 M79.671 Health Concerns Section Related Observation LastModified by Organization Detai ls LastModified Time None Recorded Concern Status LastModified by Organization Details LastModified Time None Recorded Advance Directives Directive None Recorded Payers Encounter Date Sequence Insurance Name Policy Number Policy Quan Covered Member ID Quan Member ID Guarantor Name 06/19/2023 YAQUELIN Collazo 07/10/2023 YAQUELIN Ortegaly 08/07/2023 [employer] Poppy Collazo 09/18/2023 [employer] Poppy Collazo 10/30/2023 [employer] Poppy Collazo Notes Date Note Type Note Provider Name and Address Organization Details Recorded Time 06/19/2023 text/html 23-year-old female returns to the clinic concerning a right foot 5th metatarsal avulsion fracture that occurred on 05/11/2023. She states she originally injured this foot at the end of March after an inversion injury, but x-rays at that time were negative for fractures. She then had a repeat inversion injury on 05/11/2023, which resulted in the fracture. Since her last visit she has remained in her lace-up ankle brace. She continues to have discomfort over the base of the 5th metatarsal and lateral ankle. She has been doing home exercises for her ankle, but has not done any physical therapy. MUNIR Gar [address] [place] [address], [place], [address], [facility] [place] [facility] 06/19/2023 17:06:57 OBGyn Episode No OBEpisode recorded.
== END 2024-12-08 12:06 | disposition home or self-care (01) ==
PROVIDERS: PCP Emergency Medicine; Visit Provider Emergency Medicine
DX: R55 Syncope and collapse (principal); R94.31 Abnormal electrocardiogram [ECG] [EKG]
CPT/HCPCS: 36415; 80053; 84443; 85027; 93005

== ENCOUNTER 2025-04-04 10:29 | Emergency (ER) | payer OTHER, SELFPAY ==
[2025-04-04 10:38] VITALS: BP 114/68; PULSE 89; RESP 20; TEMP 37.1; O2SAT 99
--- NOTE | 2025-04-04 10:59 | ED_ITS ---
HPI - General Adult General Chief complaint: Eye Problems Stated complaint: right eye irritation Time Seen by Provider: 04/04/25 10:29 Source: patient, RN notes reviewed and old records reviewed Mode of arrival: ambulatory Limitations: no limitations History of Present Illness HPI narrative: 25-year-old female presents to the [facility] with right eye irritation. Patient states she has had eye redness with tearing, itching, crusting in the morning. No treatment to arrival Denies any trauma. Denies any blurry vision or change in vision. Symptoms started Saturday, 2 days. Reports that it is better today than it was last 2 days Treatments prior to arrival: none Related Data Home Medications ?Medication ?Instructions ?Recorded ?Confirmed ?Last Taken ?Type budesonide-formoterol HFA 160 2 puff inhalation BID 02/22/24 02/22/24 Unknown History mcg-4.5 mcg/actuation aerosol inhaler (Symbicort) cholecalciferol (vitamin D3) 1,250 1 unit PO WEEKLY 02/22/24 02/22/24 Unknown History mcg (50,000 unit) capsule hydroxychloroquine 200 mg tablet 200 mg PO BID 02/22/24 02/22/24 Unknown History nifedipine 30 mg tablet,extended 30 mg PO DAILY 02/22/24 02/22/24 Unknown History release pantoprazole 40 mg tablet,delayed 40 mg PO DAILY 02/22/24 04/04/25 Unknown History release famotidine 20 mg tablet mg 04/04/25 Unknown History fluoxetine 10 mg capsule mg 04/04/25 Unknown History Allergies Allergy/AdvReac Type Severity Reaction Status Date / Time No Known Allergies Allergy Verified 04/04/25 11:23 Review of Systems Review of Systems: All systems reviewed & are unremarkable except as noted in HPI and below Constitutional: Constitutional: Reports no additional constitutional complaints Eyes: Eyes: Reports as per HPI ENT: Reports system reviewed and no additional complaints, except as documented PMFSH Past Medical History Medical History Foot fracture Anxiety Depression History of bipolar disorder Asthma Surgical History Surgical History No significant past surgical history Social History Social History Substance use type: marijuana Gender identity (if verbalized by the patient): Female Comments At the time of my signature, I reviewed and agree with the nursing past medical, surgical, social, and family history. There is no relevant family history pertinent to the patient complaint. Exam Const: General: cooperative, healthy appearing, comfortable, no acute distress, well developed, alert and well nourished Nutritional Appearance: well nourished Orientation/consciousness: patient oriented x3 Limitations: no limitations HENMT: Head: normal to inspection Ears: hearing grossly normal bilaterally, external ears normal, TM's normal bilaterally, EAC's normal, mastoids normal and no periauricular adenopathy Mouth: Yes Normal oral and palatal mucosa present, Yes lip normal, Yes tongue normal and Yes moist mucous membranes Throat: posterior oropharynx normal, uvula midline and no uvular edema Eyes: General: appearance normal, both eyes and all related structures Alignment and Position: alignment normal Periorbital: periorbital findings normal Eyelids: eyelids normal Pupils: Equal, round and reactive pupils present Other: Right eye mildly red, irritated without edema, no conjunctival injection Neck: Neck: normal visual inspection, full ROM, no lymphadenopathy and no meningeal signs Chest: Chest palpation & inspection: normal inspection of the chest Resp: Effort & Inspection: normal respiratory effort and able to speak in complete sentences Auscultation: clear to auscultation bilaterally, no crackles, no rales, no rhonchi and no wheezes Cardio: Rate: regular rate Skin: General skin exam: normal color and no rashes or lesions noted Neuro: General: patient oriented x3, gait normal, moves all extremities and no meningeal signs Cognition (Neuro): normal cognition Speech: normal speech Gait exam (Neuro): Normal gait present Extrem: General: normal to inspection, full ROM, capillary refill normal and normal gait Psych: Appearance: grossly normal and well kempt Mental Status: mental status grossly normal Speech and movement: Normal speech and movement present and Clear speech present Affect: normal affect Attitude: cooperative Course Course Level of Care: Express Care Visit Vital Signs Vital signs: Vital Signs Temperature 98.8 F 04/04/25 10:38 Pulse Rate 89 04/04/25 10:38 Respiratory Rate 20 04/04/25 10:38 Blood Pressure 114/68 04/04/25 10:38 Pulse Oximetry 99 04/04/25 10:38 Oxygen Delivery Room Air 04/04/25 10:38 Temperature 98.8 F 04/04/25 10:38 Pulse Rate 89 04/04/25 10:38 Respiratory Rate 20 04/04/25 10:38 Blood Pressure 114/68 04/04/25 10:38 Pulse Oximetry 99 04/04/25 10:38 Oxygen Delivery Room Air 04/04/25 10:38 Reviewed Medical Decision Making MDM Narrative Medical decision making narrative: Patient sitting comfortably in exam room. Nontoxic, vitals stable. Patient in no acute distress Patient presents for right eye redness. X2 days. No treatment prior to arrival. Possible early conjunctivitis most likely allergy eyes, discussed over-the- counter treatment but will prescribe antibiotic drops Patient appropriate for outpatient treatment and follow-up Discharge instructions reviewed with patient, as well as provided in writing per nursing staff. The instructions also include specific and strict return/GO TO THE ER as well as f/u information. All questions have been answered, and the patient deny any further questions with discharge and discharge plan. Some parts of this dictation were generated by voice recognition software and may contain typographical and/or grammatical inaccuracies. Medical Records Medical records reviewed: Yes I reviewed the external patient's medical records. Vital Signs Vital Signs: Vital Signs Temperature 98.8 F 04/04/25 10:38 Pulse Rate 89 04/04/25 10:38 Respiratory Rate 20 04/04/25 10:38 Blood Pressure 114/68 04/04/25 10:38 Pulse Oximetry 99 04/04/25 10:38 Oxygen Delivery Room Air 04/04/25 10:38 Temperature 98.8 F 04/04/25 10:38 Pulse Rate 89 04/04/25 10:38 Respiratory Rate 20 04/04/25 10:38 Blood Pressure 114/68 04/04/25 10:38 Pulse Oximetry 99 04/04/25 10:38 Oxygen Delivery Room Air 04/04/25 10:38 Reviewed Lab Data Lab results reviewed: Yes I reviewed the patient's lab results. Labs: Reviewed Critical Care Time Critical Care Time Critical Care Time: No Discharge Plan Discharge Clinical Impression: Irritation of right eye Patient Disposition: Home Condition: Stable Instructions: Antibiotic Form, Conjunctivitis (ED) Additional Instructions: Apply a cool, damp compress to your affected eye. Be sure to use a clean cloth each time to avoid spreading the infection. Gently clean your eyes with wet cotton balls or pads to remove crusty buildup or irritating discharge. Use eye drops as prescribed Maintain good hygiene and only touch your eyes with freshly washed hands. You should follow-up with an eye doctor within the next 72 hours Yessica: Kyle- [phone] [facility] [phone] [place] [phone] Fanny: [place] [phone] or [phone] [facility] [phone] [facility] [phone] [facility] [phone] [facility]- [phone] Patient Language: Paraguayan Prescriptions: New polymyxin B sulf-trimethoprim 10,000 unit- 1 mg/mL drops 1 drp RIGHT EYE Q3-4H 7 Days Qty: 10 0RF Rx Instructions: while awake; do not exceed 6 doses in 24 hours No Action albuterol sulfate 90 mcg/actuation HFA aerosol inhaler 2 puff inhalation QID PRN (Reason: shortness of breath or wheezing) Qty: 8.5 0RF nifedipine 30 mg tablet extended release 30 mg PO DAILY pantoprazole 40 mg tablet,delayed release (DR/EC) 40 mg PO DAILY hydroxychloroquine 200 mg tablet 200 mg PO BID cholecalciferol (vitamin D3) 1,250 mcg (50,000 unit) capsule 1 unit PO WEEKLY budesonide-formoterol [Symbicort] 160-4.5 mcg/actuation HFA aerosol inhaler 2 puff INHALATION BID famotidine 20 mg tablet fluoxetine 10 mg capsule lamotrigine [Lamictal] 100 mg tablet 100 mg PO BID Qty: 60 0RF Follow-up/Referrals: Kim,Olamide Aldana MD [Primary Care Provider] - 2 Weeks ([facility] follow- up) Stand Alone Forms: Work/School Release IP Time of Disposition: 11:16
== END 2025-04-04 11:25 | disposition home or self-care (01) ==
PROVIDERS: Emergency Provider Nurse Practitioner; PCP Emergency Medicine
DX: H57.89 Other specified disorders of eye and adnexa (principal); J45.909 Unspecified asthma, uncomplicated; F41.9 Anxiety disorder, unspecified; F31.9 Bipolar disorder, unspecified
CPT/HCPCS: 99213; G0463

== ENCOUNTER 2025-05-22 17:24 | Emergency (ER) | payer OTHER, SELFPAY ==
[2025-05-22 17:31] VITALS: BP 113/70; PULSE 92; RESP 18; TEMP 37.1; O2SAT 100
--- NOTE | 2025-05-22 17:36 | ED.HA ---
HPI - Headache General Chief Complaint: Upper Respiratory Infection Stated Complaint: Headache patient presents to the [facility] accompanied by significant other with complaints of nasal congestion, fatigue, headaches, scratchy throat and chills that began 3 days ago. Patient noted the day prior did call off work for a migraine-like headache. Due to symptoms patient has not been at work since Saturday. [id number] medications taken for symptoms with temporary relief. Denies fever, dizziness, shortness of breath, abdominal pain nausea, vomiting, diarrhea. Related Data Home Medications ?Medication ?Instructions ?Recorded ?Confirmed ?Last Taken ?Type budesonide-formoterol HFA 160 2 puff inhalation BID 02/22/24 02/22/24 Unknown History mcg-4.5 mcg/actuation aerosol inhaler (Symbicort) cholecalciferol (vitamin D3) 1,250 1 unit PO WEEKLY 02/22/24 02/22/24 Unknown History mcg (50,000 unit) capsule hydroxychloroquine 200 mg tablet 200 mg PO BID 02/22/24 02/22/24 Unknown History nifedipine 30 mg tablet,extended 30 mg PO DAILY 02/22/24 02/22/24 Unknown History release pantoprazole 40 mg tablet,delayed 40 mg PO DAILY 02/22/24 04/04/25 Unknown History release famotidine 20 mg tablet mg 04/04/25 Unknown History fluoxetine 10 mg capsule mg 04/04/25 Unknown History Allergies Allergy/AdvReac Type Severity Reaction Status Date / Time Penicillins Allergy Intermediate Jittery Verified 05/22/25 17:44 Review of Systems Constitutional: Constitutional: Reports as per HPI, Reports chills, Reports fatigue, Denies fever(s) and Denies weakness Eyes: Eyes: Reports no additional eye complaints ENT: Reports as per HPI, Denies vertigo, Denies dizziness, Reports nasal congestion and Denies sore throat Cardiovascular: Cardiovascular: Reports as per HPI, Denies chest pain and Denies rapid heart rate Respiratory: Respiratory: Reports as per HPI, Reports chest congestion, Reports cough, Denies dyspnea and Denies wheezing Gastrointestinal: Gastrointestinal: Reports as per HPI, Denies diarrhea, Denies nausea and Denies vomiting Genitourinary: Genitourinary: Reports no additional female genitourinary complaints Musculoskeletal: Musculoskeletal: Reports as per HPI and Reports myalgias Integumentary/Breasts: Skin/Breast: Reports as per HPI, Denies erythema, Denies rash and Denies skin ulcer Neurologic: Reports as per HPI, Denies vertigo, Denies dizziness, Reports headache(s) and Denies weakness Psychiatric: Psychiatric: Reports no additional psychiatric complaints Endocrine: Endocrine: Reports no additional endocrine complaints Hematologic/Lymphatic: Hematologic/Lymphatic: Reports no additional hematologic/lymphatic complaints Allergic/Immunologic: Allergic/Immunologic: Reports no additional allergic/immunologic complaints [facility] Past Medical History Medical History (Updated 05/22/25 @ 17:59 by SHEILA Escobar) Foot fracture Anxiety Depression History of bipolar disorder Asthma Surgical History Surgical History No significant past surgical history Social History Social History Substance use type: marijuana Gender identity (if verbalized by the patient): Female Exam Const: General: healthy appearing Nutritional Appearance: well nourished Orientation/consciousness: patient oriented x3 Limitations: no limitations HENMT: Head: normal to inspection Ears: external ears normal and TM's normal bilaterally Face/Nose/Sinus: Normal external nose present and Normal nares present Face and sinus: normal facial exam and sinuses nontender Mouth: Yes Normal oral and palatal mucosa present, Yes lip normal and Yes moist mucous membranes abnormal Throat: posterior oropharynx abnormal ( Minimal edema with erythema, no exudate) Neck: Neck: normal visual inspection and no lymphadenopathy Resp: Effort & Inspection: normal respiratory effort Auscultation: clear to auscultation bilaterally Cardio: Rate: regular rate Rhythm: regular rhythm Skin: General skin exam: normal color Rashes: no rashes Wounds: no wounds Neuro: General: patient oriented x3 Speech: normal speech Gait exam (Neuro): Normal gait present Psych: Mental Status: mental status grossly normal Affect: normal affect Attitude: cooperative Course Course Level of Care: Express Care Visit Vital Signs Vital signs: Vital Signs Temperature 98.8 F 05/22/25 17:31 Pulse Rate 92 05/22/25 17:31 Respiratory Rate 18 05/22/25 17:31 Blood Pressure 113/70 05/22/25 17:31 Pulse Oximetry 100 05/22/25 17:31 Oxygen Delivery Room Air 05/22/25 17:31 Temperature 98.8 F 05/22/25 17:31 Pulse Rate 92 05/22/25 17:31 Respiratory Rate 18 05/22/25 17:31 Blood Pressure 113/70 05/22/25 17:31 Pulse Oximetry 100 05/22/25 17:31 Oxygen Delivery Room Air 05/22/25 17:31 MDM - Headache MDM Narrative Medical decision making narrative: flu and COVID completed in clinic today. The patient was evaluated by myself in the [facility] care. History is obtained from patient who is an independent historian and physical exam was performed. Available medical records were reviewed at this time. Exam findings show no acute concerns or changes; patient is non-toxic appearing and is in no distress. Patient is appropriate for outpatient treatment and follow-up. I have evaluated and discussed social determinants of health with the patient that could potentially impact subsequent diagnosis and treatment plans. Differential diagnosis and treatment plan were discussed with the patient. Patient agrees with discussion and after shared medical decision making agrees with plan of care. All questions were answered to the patient's satisfaction. Differential Diagnosis Differential diagnosis: Likely migraine, tension headache, headache and sinusitis Medical Records Attestation: I reviewed the patient's medical records. Lab Data Attestation: I reviewed the patient's lab results. Lab results narrative: positive COVID, negative flu Discharge Plan Discharge Clinical Impression: COVID Patient Disposition: Home Condition: Stable Instructions: Antibiotic Form, Cold Symptoms (ED), COVID-19 (Coronavirus Disease 2019) (ED) Additional Instructions: COVID-19 DISCHARGE The following recommendations have been made by the CDC and local Health Departments, regarding COVID-19: If You Test Positive for COVID-19 (Isolate) Everyone, regardless of vaccination status. Stay home for 5 days. If you have no symptoms or your symptoms are resolving after 5 days, you can leave your house. Continue to wear a mask around others for 5 additional days. If you have a fever, continue to stay home until your fever resolves. Common Adult Symptoms: Fever/chills Cough Shortness of breath Fatigue, muscle aches Headache Loss of taste/smell Sore throat, congestion, runny nose GI symptoms (nausea, vomiting, diarrhea) Common Pediatric Symptoms Cough Fever GI symptoms (diarrhea, upset stomach, nausea, vomiting) Symptoms may differ in severity however, most cases do not require hospitalization. WHEN TO SEEK ER EVALUATION/TREATMENT Severe/persistent shortness of breath or difficulty breathing Elevated, persistent fevers without resolution with fever-reducing medications Chest pain Extreme fatigue/lethargy Complications of pre-existing disease Patient Language: Latvian Prescriptions: New benzonatate 200 mg capsule 200 mg PO TID PRN (Reason: cough) Qty: 30 0RF methylprednisolone [Medrol (Morgan)] 4 mg tablets,dose pack See Rx Instructions .ROUTE .COMPLEX Qty: 21 0RF Rx Instructions: for 6 days No Action albuterol sulfate 90 mcg/actuation HFA aerosol inhaler 2 puff inhalation QID PRN (Reason: shortness of breath or wheezing) Qty: 8.5 0RF nifedipine 30 mg tablet extended release 30 mg PO DAILY pantoprazole 40 mg tablet,delayed release (DR/EC) 40 mg PO DAILY hydroxychloroquine 200 mg tablet 200 mg PO BID cholecalciferol (vitamin D3) 1,250 mcg (50,000 unit) capsule 1 unit PO WEEKLY budesonide-formoterol [Symbicort] 160-4.5 mcg/actuation HFA aerosol inhaler 2 puff INHALATION BID famotidine 20 mg tablet fluoxetine 10 mg capsule lamotrigine [Lamictal] 100 mg tablet 100 mg PO BID Qty: 60 0RF Follow-up/Referrals: Farroll,Olamide Aldana MD [Primary Care Provider, Unknown] Stand Alone Forms: Work/School Release IP Time of Disposition: 17:59
[2025-05-22 17:59] LABS: EDCOVIDSCREEN Positive (Negative); EDINFLUASCREEN Negative (Negative); EDINFLUBSCREEN Negative (Negative)
== END 2025-05-22 18:05 | disposition home or self-care (01) ==
PROVIDERS: Emergency Provider Nurse Practitioner Family; PCP Emergency Medicine
DX: U07.1 COVID-19 (principal); J45.909 Unspecified asthma, uncomplicated; F41.9 Anxiety disorder, unspecified; F32.A Depression, unspecified
CPT/HCPCS: 87426; 87804; 99213; G0463